=== PATIENT | female | born 2000 | race Caucasian/White ===

== ENCOUNTER 2022-06-17 11:48 | Outpatient (REF) | payer BC, SELFPAY ==
[2022-06-17 14:29] LABS: Glucose Fasting 85 mg/dL (60-99)
== END 2022-06-17 11:49 | disposition home or self-care (01) ==
LOC: HO.HMGCLDS 11:48
PROVIDERS: Visit Provider Pediatrics
DX: R73.09 Other abnormal glucose (principal)
CPT/HCPCS: 36415; 82947

== ENCOUNTER 2023-03-29 09:27 | Outpatient (REF) | payer BC, SELFPAY ==
[2023-03-31 18:48] LABS: TS Negative Control Passed; TS Panel A 0; TS Panel B 0; TS Positive Control Passed; TSpotTB Negative (Negative)
== END 2023-03-29 09:28 | disposition home or self-care (01) ==
LOC: HO.HMGCLDS 09:27
PROVIDERS: PCP Pediatrics; Visit Provider Pediatrics
DX: Z11.1 Encounter for screening for respiratory tuberculosis (principal)
CPT/HCPCS: 36415; 86481

== ENCOUNTER 2023-11-29 08:34 | Outpatient (REF) | payer BC, SELFPAY ==
[2023-11-29 10:03] LABS: MANUAL DIFF FLAG NO
[2023-11-29 10:17] LABS: Basophils Percent Auto 0.5 % (0-2); Eosinophils Absolute Auto 0.1 X10*3/uL (0.0-0.4); Hematocrit 42.3 % (37.0-47.0); Hemoglobin 13.5 g/dl (12.0-16.0); Imm Gran Abs Auto 0.02 X10*3/uL (0.00-0.03); Imm Gran Pct Auto 0.3 % (0.0-0.4); Mean Corpuscular HGB Conc 31.9 g/dl (31.0-35.0); Mean Corpuscular Hemoglobin 28.4 pg (27.0-33.0); Mean Corpuscular Volume 89.1 fL (80.0-98.0); Mean Platelet Volume 9.4 fL (9.4-12.3); Monocytes Absolute Auto 0.5 X10*3/uL (0.1-1.2); Monocytes Percent Auto 8.9 % (2-11); Neutrophils Absolute Auto 3.4 x10*3/uL (2.0-8.3); Neutrophils Percent Auto 55.3 % (45-73); Platelet Count 389 X10*3/uL (160-400); Red Blood Count 4.75 X10*6/uL (4.20-5.50); Red Cell Distribution Width 13.2 % (11.0-16.0); White Blood Count 6.1 X10*3/uL (4.8-10.8)
[2023-11-29 10:47] LABS: Alanine Aminotransferase 18 U/L (0-31); Albumin Level 4.3 g/dL (3.5-5.0); Alkaline Phosphatase 64 U/L (39-117); Anion Gap 9 (12-20); Aspartate Amino Transferase 17 U/L (5-31); Bilirubin Total 0.7 mg/dL (0.0-1.0); Blood Urea Nitrogen 16 mg/dL (9-16); Calcium 9.5 mg/dL (8.4-10.2); Carbon Dioxide 24 mmol/L (22-29); Chloride 110 mmol/L (96-108); Cholesterol 171 mg/dL (<200); Estimated Glomerular Filt Rate > 60; Free T4 (Free Thyroxine) 0.79 ng/dL (0.71-1.85); Glucose Fasting 93 mg/dL (60-99); HDL Cholesterol 57 mg/dL (>40); LDL Cholesterol Calculated 104 mg/dL (<100); Potassium 4.3 mmol/L (3.3-5.1); Sodium 139 mmol/L (135-145); Thyroid Stimulating Hormone 3.73 uIU/mL (0.32-4.0); Total Protein 7.1 g/dL (6.5-8.0); Triglycerides 52 mg/dL (<150)
== END 2023-11-29 08:35 | disposition home or self-care (01) ==
LOC: HO.HMGCLDS 08:34
PROVIDERS: PCP Internal Medicine; Visit Provider Internal Medicine
DX: E01.0 Iodine-deficiency related diffuse (endemic) goiter (principal); G90.A Postural orthostatic tachycardia syndrome [POTS]
CPT/HCPCS: 36415; 80053; 80061; 84439; 84443; 85025

== ENCOUNTER 2023-12-21 07:03 | Outpatient (REF) | payer BC, SELFPAY ==
[2023-12-21 10:56] LABS: HBS Num1 0.76 mIU/mL (0-7.99); HBsAGNum1 0.28 S/CO (0.00-0.99); Hepatitis A Antibody IgM 0.26 Index (0-0.79); Hepatitis B Core Antibody Nonreactive (Nonreactive); Hepatitis B Surface Antigen Negative (Negative); ~HepC Num1 0.13 S/CO (0.00-0.79); ~Hepatitis A Antibody IgM Nonreactive (Nonreactive); ~Hepatitis B Surface Antibody NONREACTIVE (Nonreactive); ~Hepatitis C Antibody Nonreactive (Nonreactive)
== END 2023-12-21 07:04 | disposition home or self-care (01) ==
LOC: HO.HMGCLDS 07:03
PROVIDERS: PCP Internal Medicine; Visit Provider Internal Medicine
DX: Z01.84 Encounter for antibody response examination (principal); Z28.39 Other underimmunization status
CPT/HCPCS: 36415; 86704; 86706; 86709; 86803; 87340

== ENCOUNTER 2024-01-09 14:08 | Outpatient (REF) | payer BC, SELFPAY ==
--- NOTE | ~2024-01-09 | US_ITS ---
EXAMINATION: US THYROID CLINICAL INFORMATION: Goiter. COMPARISON: None available. TECHNIQUE: Linear transducer grayscale and color Doppler examination with attention to the region of the thyroid. FINDINGS: SIZE: Measurements of the thyroid lobes and nodules are given in sagittal, anteroposterior and transverse dimensions respectively. Right Thyroid Lobe: 5.7 x 1.8 x 1.6 cm, volume 8.5 mL. Parenchyma: The gland echotexture is heterogeneous. Thyroid vascularity is hypervascular. Left Thyroid Lobe: 5.6 x 2.7 x 2.3 cm, volume 18.7 mL. Parenchyma: The gland echotexture is heterogeneous. Thyroid vascularity is hypervascular. Isthmus: 0.7 cm in maximum AP dimension. Estimated total number of nodules greater than or equal to 1 cm: 0. [employer] nodules are described as follows: NODES: No lymphadenopathy is seen in the tissue surrounding the thyroid gland. US/US thyroid IMPRESSION: Diffusely heterogeneous, hypervascular thyroid gland. Enlarged thyroid gland, left lobe greater than right. No suspicious thyroid nodules identified. ACR TI-RADS RECOMMENDATION REFERENCE: Ultrasound-guided fine-needle aspiration, followup ultrasound, no further follow up. * TR1 (0 point) and TR2 (2 points): No FNA or follow up. * TR3 (3 points): FNA if more than or equal to 2.5 cm in maximum dimension, followup ultrasound in 1, 3 and 5 years if 1.5 to 2.4 cm in maximum dimension. * TR4 (4-6 points): FNA if more than or equal to 1.5 cm in maximum dimension, followup ultrasound in 1, 2, 3 and 5 years if 1 to 1.4 cm in maximum dimension. * TR5 (more than or equal to 7 points): FNA if more than or equal to 1 cm in maximum dimension, followup ultrasound every year for 5 years if 0.5 to 0.9 cm in maximum dimension. * TR3, TR4 or TR5 nodules that are below the size threshold for followup receive no follow up. Electronically signed by: Layla Velasquez MD 01/24/2024 10:21 AM EDT
== END 2024-01-09 14:09 | disposition home or self-care (01) ==
LOC: HO.HMGCX 14:08
PROVIDERS: PCP Internal Medicine; Visit Provider Internal Medicine
DX: E01.0 Iodine-deficiency related diffuse (endemic) goiter (principal)
CPT/HCPCS: 76536

== ENCOUNTER 2024-01-12 15:44 | Emergency (ER) | payer BC, SELFPAY ==
[2024-01-12 15:58] VITALS: PULSE 130; RESP 20; TEMP 37.2; O2SAT 97; BMI 24.2
--- NOTE | 2024-01-12 16:01 | ED.GENADULT ---
HPI - General Adult General Chief complaint: General Medical Stated complaint: hx POTS, full body tremor + high HR s/p syncope Time Seen by Provider: 01/12/24 16:20 Source: patient and family Mode of arrival: wheelchair Limitations: no limitations History of Present Illness HPI narrative: Patient is a 23-year-old female who presents emergency department with mother for evaluation. She reports that she has been experiencing tachycardia and full body shaking, as well as occasional nausea. Reports that onset of symptoms was 5 days ago without any precipitating illness. She reports 5 days ago she had an episode where she felt as though she was going to pass out when walking to her car, otherwise denies associated dizziness, lightheadedness, fevers, shortness of breath, difficulty breathing, numbness or tingling, chest pain, vomiting, abdominal pain, possibility of . She reports that she was evaluated at [facility] Emergency Department 2 days ago as well, her symptoms were ultimately improved after receiving 3 doses of lorazepam IV. She reports taking lorazepam 1 mg by mouth at 05:00 this morning without any improvement. She contacted her primary care doctor's office and was advised to come to the emergency department as she had been experiencing tachycardia with rate up to 160. She reports an episode that occurred similar to this in June lasting 2 weeks that was constant in nature at that time as well, but has been symptom-free up until 5 days ago. the only thing that somewhat alleviated the shaking was use of Ativan 1 mg daily orally. She has been evaluated at [facility] in the emergency department as well as with Cardiology Dr. Klein but is unable to have a follow-up appointment with them until February of 2024. as well as [facility] in [place], where she was evaluated by Neurology during hospital stay but had no subsequent outpatient follow-up for imaging, denies ever having had an EEG. Reports that she had a normal CT of the head. States that there has been mention of functional neurologic disorder but no definitive diagnosis. Aside from lorazepam, she had trialed beta-blockers but developed constant nausea and a a general unwell feeling on them, trialed propranolol twice and metoprolol once. Her primary care doctor is Dr. Dahl through [facility], who is attempting to arrange referral to Cardiology at [place], and awaiting referral for Neurology. Related Data Previous Rx's ?Medication ?Instructions ?Recorded azithromycin 250 mg tablet See Rx Instructions PO .COMPLEX #6 08/31/21 tabs Allergies Allergy/AdvReac Type Severity Reaction Status Date / Time amoxicillin Allergy Mild Hives Verified 01/12/24 16:08 Review of Systems Review of Systems: Yes all other systems are reviewed and are negative [facility] Past Medical History Attestation statement: The following information was validated with the patient. Source: old records reviewed Medical History (Updated 01/12/24 @ 20:06 by Shirley Berman CNP) Tremor POTS (postural orthostatic tachycardia syndrome) Social History Social History Patient Tobacco Use Status: Never used Tobacco Smoked in Last 30 Days: No Use of substances other than those prescribed or required for medical reasons: No Advance Directives: No Advance Directives Information Provided: No Do you have a plan to hurt others: No Plan Physical Exam ED Vital Signs: Vital Signs - 24 hr 01/12/24 15:58 01/12/24 16:57 01/12/24 18:00 Temperature 98.9 F 98.3 F 98.5 F Pulse Rate 130 H 139 H 80 Respiratory Rate 20 22 H 18 Blood Pressure 106/71 124/82 Pulse Oximetry 97 96 99 Oxygen Delivery Method Room Air Room Air Room Air 01/12/24 19:35 01/12/24 20:47 Temperature 98.7 F 98.7 F Pulse Rate 78 78 Respiratory Rate 20 20 Blood Pressure 136/92 H 136/92 H Pulse Oximetry 98 98 Oxygen Delivery Method Room Air BMI result Body Mass Index 24.2 Appearance: Alert.?Oriented to person, place and time. No acute distress.?Normal affect. Eyes: Pupils equal, round and reactive to light.? ENT: Pharynx normal.?? Neck: Normal inspection.? Neck supple.?? CVS: Heart sounds normal. Sinus tachycardia.? Pulses normal.?? Respiratory: No respiratory distress.? Lung sounds clear to auscultation bilaterally?? Abdomen: Soft and non-tender. Normoactive bowel sounds. ? Skin: Skin warm and dry.? Normal skin color.? Extremities: No lower extremity edema.? No calf ttp? Neuro: Noted to have rhythmic convulsions involving or so and bilateral upper and lower extremities of varying location, overall constant during the time of my evaluation. Moves all extremities spontaneously. Sensation intact bilaterally. CN II-XII intact. No focal neuro deficits. Course Course Course Narrative: This is a Rapid Medical Examination (RME) performed by Jozef Moreau PA-C in triage. Full HPI, ROS, assessment and treatment plan per primary provider in the Main ED. 23 yo female hx of POTS here w/ mom for eval of full body tremors and elevated heart rate x 2 weeks. reports HR ranges from 90-115bpm and then the tremors will start. hr earlier today was 160. called PCP who told her to come to the ED. reports taking ativan at 5am today. seen at [facility] on Monday and was discharged home. states that this has happened earlier this year and was evaluated at both [facility] and [facility]. tremors were treated with ativan and eventually resolved. presents in wheel chair. patient AOX3. noted upper body tremor. no tremor noted to lower extremities. speaking in complete sentences. Plan: labs, ekg Reevaluation(s) Reevaluation #1: Records were reviewed from [facility] 01/10/2024; emergency department visit, her serum labs were found to have a slightly elevated TSH but normal free T4, NSR on EKG, affirmed she did not fact receive 3 doses of lorazepam 1 mg IV before ultimate cessation of her symptoms, was advised to have outpatient follow-up with Cardiology for tachycardia/pots and follow-up with PT/OT, and psychotherapist for CBT for FND Time: 17:26 Reevaluation #2: CBC is without evidence of leukocytosis or left shift, no anemia, no thrombocytopenia. No significant electrolyte derangement. No CHERI. Magnesium within normal range. LFTs within normal range. CK within normal range. Urinalysis without evidence of infection or microscopic hematuria. testing negative. Viral panel negative. Patient noted to have cessation of tremors, tachycardia has improved with rate in the 60s, normal sinus rhythm on telemetry over the past. Upon speaking with patient and discussing her results at bedside, she does state that she feels more relaxed and tired at this time, unfortunately she did begin to have again arrhythmic like convulsion to her chest and slightly to the bilateral upper extremities. Time: 18:18 Reevaluation #3: Patient received a 2nd dose of lorazepam 1 mg IV, movement convulsions have notably decreased in frequency and depth into the chest and bilateral upper extremities. Discussed plan of care with patient and mother for close outpatient follow-up with primary care provider in addition to cardiology/neurology. Advised strict return precautions. Stable for discharge home. Time: 20:06 Medications Administered Discontinued Medications Generic Name Dose Route Start Last Admin Trade Name Nhi PRN Reason Stop Dose Admin Sodium Chloride 1,000 mls @ 999 mls/hr 01/12/24 17:00 01/12/24 19:43 Ns IV 01/12/24 18:00 Infused .Q1H1M JERMAINE Infusion Lorazepam 1 mg 01/12/24 16:53 01/12/24 17:36 Lorazepam 2 Mg/Ml Vial IVPUSH 01/12/24 16:54 1 mg ONCE ONE Administration Lorazepam 1 mg 01/12/24 18:58 01/12/24 19:25 Lorazepam 2 Mg/Ml Vial IVPUSH 01/12/24 18:59 1 mg ONCE ONE Administration Ondansetron HCl 4 mg 01/12/24 16:59 01/12/24 17:37 Ondansetron Hcl 4 Mg/2 Ml Vial IVPUSH 01/12/24 17:00 4 mg ONCE ONE Administration Medical Decision Making Medical Decision Making [facility] Narrative: Patient is a 23-year-old female with reported past medical history of POTS, tremor who presents emergency department for evaluation of tachycardia and constant body shaking over the past 5 days without identifiable precipitating cause. As per HPI has had a similar occurrence in June that lasted 2 weeks. Has reportedly failed outpatient management with beta-blockers due to adverse effects. Has had some minimal improvement in the past with lorazepam orally by her account. No recent follow-up with cardiology or Neurology. Clinically have lower suspicion for intracranial mass, given recent normal head CT, suspect less likely to be seizures due to duration but would likely benefit from EEG. During my evaluation she is noted to have rhythmic convulsions involving the torso, bilateral upper and lower extremities of varying location that is overall constant during the time of evaluation, she is speaking clear full sentences, does not noted to have a tremulous voice, is mildly tachycardic at 110. Will obtain CBC to evaluate for leukocytosis/ anemia, CMP and lipase to evaluate for abnormal electrolytes /abnormal renal function/ abnormal hepatic/biliary function, EKG to evaluate for arrhythmia, and urinalysis Differential Diagnosis Differential Diagnoses: The differential diagnosis associated with the presentation includes (POTS, FND, tachyarrhythmia, SVT, seizure, functional tremor) Admission/Observation Consideration of admission/observation: Escalation of care including admission/observation considered Lab Data 01/12/24 17:31 01/12/24 17:31 Labs: Lab Results 01/12/24 01/12/24 01/12/24 Range/Units 17:31 17:31 17:32 WBC 6.8 (4.8-10.8) X10*3/uL RBC 4.68 (4.20-5.50) X10*6/uL Hgb 13.6 (12.0-16.0) g/dl Hct 41.2 (37.0-47.0) % MCV 88.0 (80.0-98.0) fL MCH 29.1 (27.0-33.0) pg MCHC 33.0 (31.0-35.0) g/dl RDW 12.9 (11.0-16.0) % Plt Count 370 (160-400) X10*3/uL MPV 9.4 (9.4-12.3) fL Immature Gran % (Auto) 0.1 (0.0-0.4) % Neut % (Auto) 51.5 (45-73) % Lymph % (Auto) 32.9 (20-40) % Lanier % (Auto) 13.1 H (2-11) % Eos % (Auto) 1.8 (0-4) % Baso % (Auto) 0.6 (0-2) % Lymph # (Auto) 2.2 (1.2-4.9) X10*3/uL Lanier # (Auto) 0.9 (0.1-1.2) X10*3/uL Eos # (Auto) 0.1 (0.0-0.4) X10*3/uL Baso # (Auto) 0.0 (0.0-0.2) X10*3/uL Abs Immat Gran (auto) 0.01 (0.00-0.03) X10*3/uL Absolute Neuts (auto) 3.5 (2.0-8.3) x10*3/uL Absolute Nucleated RBC 0.000 (0.0-0.012) X10*3/uL Nucleated RBC % (auto) 0.0 (0.0-0.2) /100WBC Sodium 144 (135-145) mmol/L Potassium 4.2 (3.3-5.1) mmol/L Chloride 111 H (96-108) mmol/L Carbon Dioxide 25 (22-29) mmol/L Anion Gap 12 (12-20) BUN 14 (9-16) mg/dL Creatinine 0.79 (0.5-1.4) mg/dL Estim Creat Clear Calc 105.4 Estimated GFR > 60 Random Glucose 84 (60-115) mg/dL Calcium 9.9 (8.4-10.2) mg/dL Magnesium 2.1 (1.6-2.6) mg/dL Total Bilirubin 0.5 (0.0-1.0) mg/dL AST 18 (5-31) U/L ALT 18 (0-31) U/L Alkaline Phosphatase 72 (39-117) U/L Total Creatine Kinase 71 Cancelled (26-140) U/L Total Protein 7.6 (6.5-8.0) g/dL Albumin 4.5 (3.5-5.0) g/dL TSH 3.35 (0.32-4.0) uIU/mL Urine Color Yellow Urine Appearance Clear Urine pH 6.0 (5.0-9.0) Ur Specific [place] 1.015 (1.005-1.025) Urine Protein Negative (Neg-Trace) mg/dL Urine Glucose (UA) Negative (Negative) mg/dL Urine Ketones Negative (Negative) mg/dL Urine Blood Negative (Negative) Urine Nitrite Negative (Negative) Ur Leukocyte Esterase Negative (Negative) Urine Test NEGATIVE (NEGATIVE) Influenza Type A (PCR) NEGATIVE (Negative) Influenza Type B (PCR) NEGATIVE (Negative) RSV RNA Qual (PCR) NEGATIVE (Negative) SARS-CoV-2 RNA (RT-PCR) NEGATIVE (Negative) Independent Interpretation I performed an independent interpretation of an: EKG Interpretation: Rate: 102 Rhythm:? Sinus tachycardia Normal P waves.? Normal MICHEL.?? Normal QRS complex.?? ST T wave :??No ST elevation, no ST depression qTC:435 prior studies:? None prior available for review The study has been interpreted contemporaneously by me. External Record Review External record reviewed: Outpatient record (See course narrative) Critical Care Time Critical Care Time Critical Care Time: Yes Total Critical Care Time: 35 Attestation: I personally attest to this critical care time spent taking care of the patient exclusive of all other billable procedures was approximately 35 minutes including initial evaluation of patient, ordering tests, IV lorazepam and re-evaluation, EKG interpretation, medical consultation, documentation, re-evaluation. Discharge Plan Discharge Clinical Impression: POTS (postural orthostatic tachycardia syndrome), Tremor Patient Disposition: Home, Self-Care Instructions: Tremors (ED), Tachycardia (ED) Additional Instructions: As discussed, it is very important that you follow-up with Cardiology and Neurology. I have provided contact information for both the Cardiology and Neurology office associated with [facility]. Please follow-up with your primary care doctor closely. Continue use of your Ativan as needed as prescribed. Return to emergency department any new or worsening symptoms or concerns. Prescriptions: No Action azithromycin 250 mg tablet See Rx Instructions PO .COMPLEX Qty: 6 0RF Rx Instructions: take 500 mg today (day 1), then 250 mg for 4 days (days 2-5) PO Referrals: [facility] Cardiovascular Specialists [Provider Group] [facility] Neuro/Sleep [Provider Group] Ant Dahl DO [Primary Care Provider] - Interventions: ED Discharge Assessment Last Done: 01/12/24 20:47 Discharge Date/Time: 01/12/24 20:47 Print Language: Guyanese
--- NOTE | 2024-01-12 16:09 | ECG_ITS ---
Test Reason : TACHYCARDIA Blood Pressure : / mmHG Vent. Rate : 102 BPM Atrial Rate : 102 BPM P-R Int : 192 ms QRS Dur : 084 ms QT Int : 334 ms P-R-T Axes : 047 020 037 degrees QTc Int : 435 ms Poor data quality, interpretation may be adversely affected Sinus tachycardia Otherwise normal ECG No previous ECGs available Referred By: Sienna Moreau Electronically Signed By:THOMAS IRWIN
[2024-01-12 16:57] VITALS: BP 106/71; PULSE 139; RESP 22; TEMP 36.8; O2SAT 96
[2024-01-12] MEDS: LORazepam 2 MG/ML VIAL 1 MG IVPUSH ×2 (17:36→19:25)
[2024-01-12] MEDS: 0.9 % Sodium Chloride 1,000 ML 999 ML IV (17:37)
[2024-01-12] MEDS: ondansetron HCL 4 MG/2 ML VIAL IVPUSH (17:37)
[2024-01-12 17:40] LABS: MANUAL DIFF FLAG NO
[2024-01-12 17:44] LABS: Appearance Urine Clear; Color Urine Yellow; Glucose Urine UA Negative (Negative); Leukocyte Esterase Urine Negative (Negative); Nitrite Urine Negative (Negative); Specific Gravity - Urine 1.015 (1.005-1.025); Urine Blood Negative (Negative); Urine Ketones Negative (Negative); Urine Protein Negative (Neg-Trace)
[2024-01-12 17:46] LABS: UPreg QC Valid YES; Urine Pregnancy NEGATIVE (NEGATIVE)
[2024-01-12 17:50] LABS: Basophils Percent Auto 0.6 % (0-2); Eosinophils Absolute Auto 0.1 X10*3/uL (0.0-0.4); Eosinophils Percent Auto 1.8 % (0-4); Hematocrit 41.2 % (37.0-47.0); Hemoglobin 13.6 g/dl (12.0-16.0); Imm Gran Abs Auto 0.01 X10*3/uL (0.00-0.03); Imm Gran Pct Auto 0.1 % (0.0-0.4); Lymphocytes Absolute Auto 2.2 X10*3/uL (1.2-4.9); Lymphocytes Percent Auto 32.9 % (20-40); Mean Corpuscular Hemoglobin 29.1 pg (27.0-33.0); Mean Platelet Volume 9.4 fL (9.4-12.3); Monocytes Absolute Auto 0.9 X10*3/uL (0.1-1.2); Monocytes Percent Auto 13.1 % (2-11); Neutrophils Absolute Auto 3.5 x10*3/uL (2.0-8.3); Neutrophils Percent Auto 51.5 % (45-73); Platelet Count 370 X10*3/uL (160-400); Red Blood Count 4.68 X10*6/uL (4.20-5.50); Red Cell Distribution Width 12.9 % (11.0-16.0); White Blood Count 6.8 X10*3/uL (4.8-10.8)
[2024-01-12 18:00] VITALS: BP 124/82; PULSE 80; RESP 18; TEMP 36.9; O2SAT 99
[2024-01-12 18:02] LABS: Alanine Aminotransferase 18 U/L (0-31); Albumin Level 4.5 g/dL (3.5-5.0); Alkaline Phosphatase 72 U/L (39-117); Anion Gap 12 (12-20); Aspartate Amino Transferase 18 U/L (5-31); Bilirubin Total 0.5 mg/dL (0.0-1.0); Blood Urea Nitrogen 14 mg/dL (9-16); Calcium 9.9 mg/dL (8.4-10.2); Carbon Dioxide 25 mmol/L (22-29); Chloride 111 mmol/L (96-108); Creatinine Clr Calc Pharmacy 105.4; Estimated Glomerular Filt Rate > 60; Glucose Random 84 mg/dL (60-115); Magnesium 2.1 mg/dL (1.6-2.6); Potassium 4.2 mmol/L (3.3-5.1); Sodium 144 mmol/L (135-145); Total Protein 7.6 g/dL (6.5-8.0)
[2024-01-12 18:20] LABS: Influenza A PCR NEGATIVE (Negative); Influenza B PCR NEGATIVE (Negative); Resp Syncy Virus RNA Qual PCR NEGATIVE (Negative); SARS COV2 PCR INHOUSE NEGATIVE (Negative)
[2024-01-12 18:24] LABS: TSH reflex Free T4 3.35 uIU/mL (0.32-4.0)
[2024-01-12 19:35] VITALS: BP 136/92; PULSE 78; RESP 20; TEMP 37.1; O2SAT 98
--- NOTE | 2024-01-12 19:36 | MHC.EDTECH ---
This tech took over care of patient at 1900,hourly rounds and vitals completed,mom at bedside,call rhoades in reach
[2024-01-12 20:47] VITALS: BP 136/92; PULSE 78; RESP 20; TEMP 37.1; O2SAT 98
--- OUTSIDE RECORDS SUMMARY | 2024-01-14 00:27 | XMS_ITS | Continuity of Care Document ---
Author Organization [facility] Address [address] [address]- Care Team Providers Care Certified Technician Name Role Phone Maximiliano Wheatley MD Primary Care Physician [phone] Encounter [facility] Date(s): 09/02/22 - 10/02/22 [facility] [address] [address]- Attending Physician: Admtr, Ar8 Admitting Physician: Admtr, Ar8 Referring Physician: Admtr, Ar8 Allergies, Adverse Reactions, Alerts Substance Reaction Severity Status amoxicillin rash Active Social History Social History Type Response Smoking Status Never (less than 100 in lifetime) entered on: 06/15/22 Sex Patient Care team information Care Team Personnel Name: Maximiliano Wheatley MD Position: S General Pediatrics MD Member Role: PCP Address: Address: [address] [place] [id number]- Care Team Related Persons Name: HOLLY FIELD Address: home [address] [place] [address] Name: SUZY FIELD Address: home [address] [place] [address]
--- OUTSIDE RECORDS SUMMARY | 2024-01-14 00:27 | XMS_ITS | Continuity of Care Document ---
Author Organization [facility] Address [address] [place] [address]- Care Team Providers Care Application Security Developer Name Role Phone Maximiliano Wheatley MD Primary Care Physician Encounter [facility] Date(s): 06/15/22 - 06/15/[address] [address]- Discharge Disposition: A-D/C Home Attending Physician: Ant Herndon MD Admitting Physician: Ant Herndon MD Referring Physician: Not on Staff, Referring MD Allergies, Adverse Reactions, Alerts Substance Reaction Severity Status amoxicillin rash Active Vital Signs Most recent to oldest [Reference Range]: 1 2 3 Height 168 cm (06/15/22 9:34 PM) 168 cm (06/15/22 8:56 PM) 168 cm (06/15/22 8:55 PM) Weight 60.6 kg (06/15/22 9:34 PM) 60.6 kg (06/15/22 8:56 PM) 60.6 kg (06/15/22 8:55 PM) Oxygen Saturation [94-100 %] 100 % (06/15/22 10:00 PM) 100 % (06/15/22 8:55 PM) Pulse Rate [55-90 bpm] 71 bpm (06/15/22 10:00 PM) 72 bpm (06/15/22 8:55 PM) Body Mass Index [18.5-24.99 kg/m2] 21.47 kg/m2 (06/15/22 9:34 PM) 21.47 kg/m2 (06/15/22 8:55 PM) Blood Pressure [90-138/55-84 mm Hg] 129/78mm Hg (06/15/22 8:55 PM) Respiratory Rate [16-30 br/min] 18 br/min (06/15/22 10:00 PM) 18 br/min (06/15/22 8:55 PM) Temperature [96.8-100.4 DegF] 97.3 DegF (06/15/22 8:55 PM) Mode of Delivery (Oxygen) Room air (06/15/22 10:00 PM) Room air (06/15/22 8:55 PM) Blood pressure sites Arm, right (06/15/22 8:55 PM) Temperature Route Temporal (06/15/22 8:55 PM) Dry Weight 60.6 kg (06/15/22 9:34 PM) 60.6 kg (06/15/22 8:56 PM) 60.6 kg (06/15/22 8:55 PM) Height Percentile 76.47 % 1 (06/15/22 9:34 PM) 76.47 % 2 (06/15/22 8:56 PM) 76.47 % 3 (06/15/22 8:55 PM) Height ZScore 0.72 4 (06/15/22 9:34 PM) 0.72 5 (06/15/22 8:56 PM) 0.72 6 (06/15/22 8:55 PM) Weight Percentile Per Age 59.31 % 7 (06/15/22 9:34 PM) 59.31 % 8 (06/15/22 8:56 PM) 59.31 % 9 (06/15/22 8:55 PM) BMI Percentile 47.04 10 (06/15/22 9:34 PM) 47.04 11 (06/15/22 8:55 PM) BMI ZScore -0.07 12 (06/15/22 9:34 PM) -0.07 13 (06/15/22 8:55 PM) Weight ZScore 0.24 14 (06/15/22 9:34 PM) 0.24 15 (06/15/22 8:56 PM) 0.24 16 (06/15/22 8:55 PM) 1Result Comment: ^~:!Percentile Source -CDC/WHO 2Result Comment: ^~:!Percentile Source -CDC/WHO 3Result Comment: ^~:!Percentile Source -CDC/WHO 4Result Comment: ^~:!ZScore Source -CDC/WHO 5Result Comment: ^~:!ZScore Source [facility]/WHO 6Result Comment: ^~:!ZScore Source [facility]/WHO 7Result Comment: ^~:!Percentile Source [facility]/WHO 8Result Comment: ^~:!Percentile Source CDC/WHO 9Result Comment: ^~:!Percentile Source [facility]/WHO 10Result Comment: ^~:!Percentile Source [facility]/WHO 11Result Comment: ^~:!Percentile Source [facility]/WHO 12Result Comment: ^~:!ZScore Source [facility]/WHO 13Result Comment: ^~:!ZScore Source CDC/WHO 14Result Comment: ^~:!ZScore Source [facility]/WHO 15Result Comment: ^~:!ZScore Source [facility]/WHO 16Result Comment: ^~:[facility]/WHO Social History Social History Type Response Smoking Status Never (less than 100 in lifetime) entered on: 06/15/22 Sex Note * eKturah Anderson: SIGN, PERFORM, SIGN, VERIFY Event Display: Patient Education Handout Authored Date: [id number] * Keturah Anderson: PERFORM Event Display: Patient Education Leaflets Authored Date: [id number] Heart Palpitations ?? [id number] Heart Palpitations Palpitations are the feeling that your heart is beating hard, fast, or irregular. Some describe it as pounding, flip-flopping in the chest, or skipped beats. Palpitations may occur in someone with heart disease. But they can also occur in a healthy person. Heart-related causes: ??? Heart rhythm problem (arrhythmia) ??? Heart valve disease ??? Disease of the heart muscle (cardiomyopathy) ??? Coronary artery disease ??? High blood pressure Omh-ceixh-ycqgqbt causes: ??? Certain medicines such as asthma inhalers and decongestants ??? Some herbal supplements, energydrinks and pills, and weight loss pills ??? Illegal stimulant drugs such as cocaine, crank, methamphetamine, PCP, and ecstasy ??? Caffeine, alcohol, and tobacco ??? Health conditions such as thyroid disease, anemia, anxiety, and panic disorder Sometimes the cause can't be found. Home care Follow these home care tips: ??? Don't use too much caffeine, alcohol, or tobacco, or any stimulantdrugs. ??? Tell your doctor about any prescription or vido-dcu-ymzqgeg or herbal medicines you take. ?? Follow-up care ??? Follow up with your doctor, or as advised. ?? Call 911 This is the fastest and safest way to get to the emergency department. The paramedics can also start treatment on the way to the hospital, if needed. Don't wait until your symptoms are severe to call 911. These are reasons to call 911: ??? Chest pain ??? Shortness of breath ??? Feeling lightheaded, faint, or dizzy, or losing consciousness ??? Veryirregular heartbeat ??? Rapid heartbeat that makes you uncomfortable ??? Slower than usual heart rate along with symptoms ??? Chest pain with weakness, dizziness,??heavy sweating, nausea, or vomiting??? Extreme drowsiness, confusion, or weakness ??? Weakness of an arm or leg, or on one side of theface ??? Trouble with speech or vision ?? When to seek medical advice Call your healthcare provider right away if you have palpitations that last longer than normal, or are different from your past palpitations. ?? Last Reviewed Date: 2021 ?? [id number] [employer] All rights reserved. This information is not intended as a substitute for professional medical care. Always follow your healthcare professional's instructions. ?? Patient Care team information Care Team Personnel Name: Maximiliano Wheatley MD Position: [facility] General Pediatrics MD Member Role: PCP Address: Address: [address] [place] [address]- Name: Keturah Anderson Position: [facility] Associate Professional Member Role: Physician Food And Nutrition Professor Address: Address: [address] [facility] [place] [address]- [place] Name: Ant Herndon MD Position: [facility] ED Medicine MD Member Role: Admitting Physician Address: Address: [address] [place] [address]- Name: Pilar Montiel RN Position: [facility] ED RN W/OE and Tasks Member Role: Patient Care Provider
--- OUTSIDE RECORDS SUMMARY | 2024-01-14 00:27 | XMS_ITS | Continuity of Care Document ---
Author Organization [facility] Address [address] [address]- Care Team Providers Care Army Senior Officer Name Role Phone Maximiliano Wheatley MD Primary Care Physician [phone] [place] [facility] [place] Date(s): 10/24/22 - 11/23/22 [facility] [address] [address]- Attending Physician: Admtr, [id number] Admitting Physician: Admtr, Ar8 Referring Physician: Admtr, Ar8 Allergies, Adverse Reactions, Alerts Substance Reaction Severity Status amoxicillin rash Active Medications metoprolol 25 mg oral tablet 12.5 mg, 0.5, tablet, By Mouth, 2 times a day, # 180 tablet, Refills 0, Tot. Refills 0, Maintenance, 11/15/22 15:21:00 EDT, Route to Pharmacy Electronically, [id number], Partial fillupon patient request if the prescription is for a s... Start Date: 11/15/22 Status: Ordered Social History Social History Type Response Smoking Status Never (less than 100 in lifetime) entered on: 06/15/22 Sex Patient Care team information Care Team Personnel Name: Maximiliano Wheatley MD Position: [facility] Pediatrics MD Member Role: PCP Address: Address: [address] [place] [address]- Care Team Related Persons Name: HOLLY FIELD Address: [address] [place] [address] Name: SUZY FIELD Address: [address] [place] [address]
--- OUTSIDE RECORDS SUMMARY | 2024-01-14 00:27 | XMS_ITS | Continuity of Care Document ---
Author Organization [facility] Address [address] [place] [address]- Care Team Providers Care Heavy Cleaner Name Role Phone Maximiliano Wheatley MD Primary Care Physician Encounter [facility] Date(s): 11/08/22 - 11/08/[address] [address]- Discharge Disposition: A-D/C Home Attending Physician: Lucas Campbell MD Admitting Physician: Lucas Campbell MD Referring Physician: Not on Staff, Referring MD Allergies, Adverse Reactions, Alerts Substance Reaction Severity Status amoxicillin rash Active Medications propranolol 20 mg oral tablet 20 mg, 1, tablet, By Mouth, 2 times a day, # 20 tablet, Refills 0, Tot. Refills 0, Maintenance, 11/08/22 22:16:00 EDT, Route to Pharmacy Electronically, [facility] #[id number], Partial fill uponpatient request if the prescription is for a schedu... Start Date: 11/08/22 Status: Ordered Results Radiology Reports * Exam Date Time Procedure Performing Provider Status 11/08/22 9:10 PM Chest 2 Views Frontal and Lat Nilda Dixon; Ara (Verified) Notes: (Chest 2 Views Frontal and Lat) Reason For Exam: Chest Pain;Other: RESULT: Chest 2 Views Frontal and Lat Chest 2 Views Frontal and Lat Hx of Present Illness: Pt experiencing palpitations and lightheaded. Pt has HX tachycardia, in the pat halter and Zio monitor.; Reason: Other:; Chest Pain; Clinical Question(s): Other: COMPARISON: 09/01/2022 FINDINGS: LINES AND TUBES: None. LUNGS AND PLEURA: Clear lungs. Normal pulmonary vascularity. No pleural effusion. No pneumothorax. HEART, MEDIASTINUM AND RHONDA: Heart is normal in size. Normal mediastinal and hilar contour. BONES AND SOFT TISSUES: No acute abnormality. IMPRESSION: No acute abnormality. WSN: [id number] Ordering Physician: Claudio Lara Dictated By: Manan Aguilera MD Dictated Date/Time: 11/08/22 9:12 pm Reviewed By: Manan Aguilera MD Signed By: Manan Aguilera MD Signed Date/Time: 11/08/22 9:12 pm Transcribed By: CARO Transcribed Date/Time: 11/08/22 9:12 pm Vital Signs Most recent to oldest [Reference Range]: 1 2 3 Height 168 cm (11/08/22 10:26 PM) 168 cm (11/08/22 8:37 PM) Weight 61.3 kg (11/08/22 8:37 PM) Oxygen Saturation [94-100 %] 100 % (11/08/22 10:26 PM) 98 % (11/08/22 8:37 PM) 98 % (11/08/22 8:32 PM) Pulse Rate [55-90 bpm] 80 bpm (11/08/22 10:26 PM) 77 bpm (11/08/22 8:37 PM) 122 bpm *H* (11/08/22 8:32 PM) Blood Pressure [90-138/55-84 mm Hg] 125/89mm Hg (11/08/22 10:26 PM) 122/88mm Hg (11/08/22 8:37 PM) Respiratory Rate [16-30 br/min] 18 br/min (11/08/22 10:26 PM) 16 br/min (11/08/22 8:37 PM) 20 br/min (11/08/22 8:32 PM) Temperature [96.8-100.4 DegF] 98.7 DegF (11/08/22 10:26 PM) 98.7 DegF (11/08/22 8:37 PM) Mode of Delivery (Oxygen) Room air (11/08/22 10:26 PM) Room air (11/08/22 8:37 PM) Room air (11/08/22 8:32 PM) Blood pressure sites Arm, left (11/08/22 10:26 PM) Arm, left (11/08/22 8:37 PM) Temperature Route Oral (11/08/22 10:26 PM) Temporal (11/08/22 8:37 PM) Dry Weight 61.3 kg (11/08/22 8:37 PM) Weight Obtained Via Standing scale (11/08/22 8:37 PM) Dry Weight Obtained Via Standing scale (11/08/22 8:37 PM) Social History Social History Type Response Smoking Status Never (less than 100 in lifetime) entered on: 06/15/22 Sex Note * Lucas Campbell MD: PERFORM Event Display: Patient Education Leaflets Authored Date: [id number] Heart Palpitations ?? [id number] Heart Palpitations Palpitations are the feeling that [...] Coronary artery disease ??? High blood pressure Ipn-lnmyl-kromrvg causes: ??? Certain medicines such as asthma [...] Tell your doctor about any prescription or zrxw-aar-rknnack or herbal medicines you take. ?? Follow-up [...] palpitations. ?? Last Reviewed Date: 2021 ?? [id number] The [employer]. All rights reserved. This information is not intended as a substitute for professional medical care. Always follow your healthcare professional's instructions. ?? Patient Care team information Care Team Personnel Name: Corry ALFREDO, Maximiliano Conner Position: [facility] General Pediatrics MD Member Role: PCP Address: Address: [address] [place] [address]- Name: Daja Burnham Position: [facility] ED [facility] Member Role: Patient Care Provider Name: Mariel Kincaid RN Position: [facility] ED RN W/OE and Tasks Member Role: Patient Care Provider Name: Lucas Campbell MD Position: [facility] ED Medicine MD Member Role: Admitting Physician Address: Address: [address] [place] [address] [place] [address]- Care Team Related Persons Name: HOLLY FIELD Address: [address] [place] [address] Name: SUZY FIELD Address: [address] [place] [address]
--- OUTSIDE RECORDS SUMMARY | 2024-01-14 00:28 | XMS_ITS | Continuity of Care Document ---
Author Organization [facility] Address [address] [place] [address]- Care Team Providers Care Call Center Associate Name Role Phone Ant Dahl DO Primary Care Physician [phone] Encounter [facility] Date(s): 08/01/23 - 08/01/[address] [address]- Discharge Disposition: A-D/C Home Attending Physician: Kelvin Campbell MD Admitting Physician: Kelvin Campbell MD Referring Physician: Not on Staff, Referring MD Allergies, Adverse Reactions, Alerts Substance Reaction Severity Status amoxicillin rash Active Medications Ativan 1 mg oral tablet 1 tablet = 1 mg, By Mouth, 2 times a day, PRN as needed for anxiety, 0 Refills, Maintenance, 06/28/23 12:57:00 EST, Tablet, Partial fill upon patient request if the prescription is for a schedule II opioid drug. Start Date: 06/28/23 Status: Ordered naproxen 250 mg oral tablet 250 mg, 1, tablet, By Mouth, 2 times a day, PRN, # 20 tablet, Refills 0, Tot. Refills 0, Acute 08/08/23 12:00:00 EDT, for pain, 08/01/23 12:00:00 EDT, Route to Pharmacy Electronically, [email or web address] #[id number], Partial fill upon patient request if... Start Date: 08/01/23 Stop Date: 08/08/23 Status: Ordered propranolol 10 mg oral tablet 10 mg, 1, tablet, By Mouth, 2 times a day, Refills 0, Maintenance, 08/01/23 9:40:00 EDT, Partial fill upon patient request if the prescription is for a schedule II opioid drug. Start Date: 08/01/23 Status: Ordered Vital Signs Most recent to oldest [Reference Range]: 1 2 Height 168 cm (08/01/23 11:59 AM) 168 cm (08/01/23 9:38 AM) Weight 66.9 kg (08/01/23 11:59 AM) 66.9 kg (08/01/23 9:38 AM) Oxygen Saturation [94-100 %] 97 % (08/01/23 11:59 AM) 98 % (08/01/23 9:38 AM) Pulse Rate [55-90 bpm] 82 bpm (08/01/23 11:59 AM) 88 bpm (08/01/23 9:38 AM) Body Mass Index [18.5-24.99 kg/m2] 23.7 kg/m2 (08/01/23 11:59 AM) Blood Pressure [90-138/55-84 mm Hg] 117/ 75mm Hg (08/01/23 11:59 AM) 154/77mm Hg *H* (08/01/23 9:38 AM) Respiratory Rate [16-30 br/min] 18 br/mi n (08/01/23 11:59 AM) 16 br/min (08/01/23 9:38 AM) Temperature [96.8-100.4 DegF] 97.9 DegF (08/01/23 11:59 AM) 97.8 DegF (08/01/23 9:38 AM) Mode of Delivery (Oxygen) Room air (08/01/23 11:59 AM) Room air (08/01/23 9:38 AM) Blood pressure sites Arm, left (08/01/23 11:59 AM) Temperature Route Oral (08/01/23 11:59 AM) Dry Weight 66.9 kg (08/01/23 11:59 AM) 66.9 kg (08/01/23 9:38 AM) Social History Social History Type Response Smoking Status Never (less than 100 in lifetime) entered on: 06/15/22 Sex Note * Ines Vaughan: PERFORM Event Display: Patient Education Leaflets Authored Date: [id number] Back Pain (Acute or Chronic) ?? [id number] Back Pain (Acute or Chronic) Back pain is one of the most common problems. The good news is that most people feel better in 1 to2 weeks, and most of the rest in 1 to 2 months. Most people can remain active. People who have pain??describe it differently???not??everyone is the same. ??? The pain can be sharp, stabbing, shooting, aching, cramping or burning. ??? Movement, standing,bending, lifting, sitting, or walking may worsen pain. ??? It can be limited to one spot or area, or it can be more generalized. ??? It can spread upwards, to the front, or go down your arms or legs (sciatica). ??? It can cause muscle spasm. Most of the time, mechanical problems with the muscles??or spine cause the pain. Mechanical problems??are usually caused by an injury to the muscles or ligaments. Illness can cause back pain, but it's usually not caused by a serious illness. Mechanical problems include:? Physical activity such as sports, exercise, work, or normal activity ??? Overexertion, lifting,pushing, pulling incorrectly or too aggressively ??? Sudden twisting, bending, or stretching from an accident, or accidental movement ??? Poor posture ??? Stretching or moving wrong, without noticingpain at the time ??? Poor coordination, lack of regular exercise (check with your doctor about this) ??? Spinal disc disease or arthritis ??? Stress Pain can also be related to , or illness such as appendicitis, bladder or kidney infections, kidney stones, and pelvic infections. Acute back pain usually gets better in??1 to 2 weeks. Back pain related to disk disease, arthritis in the spinal joints, or narrowing of the spinal canal (spinal stenosis) can become chronic and lastfor months or years. Unless you had a physical injury such as a car accident or fall, X-rays are usually not needed for the first assessment of back pain. If pain continues and does not respond to medical treatment, you may need X-rays and other tests. Home care Try this home care advice: ??? When in bed, try??to find a position of comfort. A firm mattress is best. Try lying flat on your back with pillows under your knees. You can also try lying on your side with your knees bent up toward your chest and a pillow between your knees. ??? At first, don't try to stretch out the sore spots. If there is a strain, it's not like the good soreness you get after exercising without an injury. In this case, stretching may make it worse. ??? Don't sit for long periods, as in a long car ride or during other??travel. This puts more stress on the lower back than standing or walking. ??? During the first 24 to 72 hours after an acute injury or flare up of chronic back pain, apply an ice pack to the painful area for 20 minutes and then remove it for 20 minutes. Do this over a period of 60 to 90 minutes or several times a day. This will reduce swelling and pain. Wrap the ice pack in a thintowel or plastic to protect your skin. ??? You can start with ice, then switch to heat. Heat (hot shower, hot bath, or heating pad) reduces pain and works well for muscle spasms. Heat can be applied to the painful area for 20 minutes then remove it for 20 minutes. Do this over a period of 60 to 90 minutes or several times a day. Don't sleep on a heating pad. It can lead to skin cooney or tissue damage. ??? You can alternate ice and heat therapy. Talk with your doctor about??the best treatment for your back pain. ??? Therapeutic massage can help relax the back muscles without stretching them. ??? Be aware of safe lifting methods. Don't lift anything without stretching first. Medicines Talk to your doctor before using medicine, especially if you have other medical problems or are taking other medicines. ??? You may use bvnr-svw-ogrgzsb medicine as directed on the bottle to control pain, unless another pain medicine was prescribed. Talk with your healthcare provider before using these medicines if you have chronic conditions such as diabetes, liver or kidney disease, stomach ulcers, or digestive bleeding. Also talk with your provider if you take blood thinners. ??? Be careful if you are given a prescription medicines, narcotics, or medicine for muscle spasms. They can cause drowsiness, affect your coordination, reflexes, and judgment. Don't drive or operate heavy machinery. ?? Follow-up care Follow up with your healthcare provider, or as advised.?? If X-rays were taken, you will be told of any new findings that may affect your care. ?? Call 911 Call 911 if any of the following occur: ??? Trouble breathing ??? Confusion ??? Very drowsy or trouble awakening ??? Fainting or loss of consciousness ??? Rapid or very slow heart rate ??? Loss of bowel or bladder control ?? When to seek medical advice Call your healthcare provider right away if any of these occur:? Pain gets worse or spreads toyour legs ??? Your bowel or bladder control changes ??? Fever ??? Blood in your urine ??? Weakness or numbness in one or both legs ??? Numbness in the groin or genital area ?? Last Reviewed Date: 2021 ?? [id number] [employer]. All rights reserved. This information is not intended as a substitute for professional medical care. Always follow your healthcare professional's instructions. ?? Patient Care team information Care Team Personnel Name: Ant Dahl DO Position: Reference Physician Member Role: PCP Address: Address: [address] [place] [address] [place] [address]- Name: Stephanie Hoover Position: [facility] Outreach Member Role: Lifetime Consulting Physician Care Team Related Persons Name: HOLLY FIELD Address: home [address] [facility] [place] [address] Name: KELVIN FIELD Address: [place] [address] [facility] [place] [address]
--- OUTSIDE RECORDS SUMMARY | 2024-01-14 00:28 | XMS_ITS | Continuity of Care Document ---
Author Organization [facility] Address [address] [place] [address]- Care Team Providers Care Sales And Marketing Administrator Name Role Phone Maximiliano Wheatley MD Primary Care Physician Encounter [facility] Date(s): 09/01/22 - 09/01/[address] [address]- Discharge Disposition: A-D/C Home Attending Physician: Abhishek Baldwin MD Admitting Physician: Abhishek Baldwin MD Referring Physician: Not on Staff, Referring MD Allergies, Adverse Reactions, Alerts Substance Reaction Severity Status amoxicillin rash Active Medications No Known Medications Results Radiology Reports * Exam Date Time Procedure Performing Provider Status 09/01/22 9:08 PM Chest 2 Views Frontal and Lat Sarah Ospina; Auth (Verified) Notes: (Chest 2 Views Frontal and Lat) Reason For Exam: Chest Pain;Other: RESULT: Chest 2 Views Frontal and Lat Chest 2 Views Frontal and Lat Hx of Present Illness: onset 1900- felt like she was going to pass out and felt palpitations - seenby Dr. Limon, has had halter monitor in past -; Reason: Other:; Chest Pain; Clinical Question(s): Other: COMPARISON: 06/14/2022. FINDINGS: LINES AND TUBES: None. LUNGS AND PLEURA: Clear lungs. Normal pulmonary vascularity. No pleural effusion. No pneumothorax. HEART, MEDIASTINUM AND RHONDA: Heart is normal in size. Normal mediastinal and hilar contour. BONES AND SOFT TISSUES: No acute abnormality. IMPRESSION: No acute abnormality. WSN: [id number] Ordering Physician: Ant Herndon Dictated By: Bina Mars MD Dictated Date/Time: 09/01/22 9:11 pm Reviewed By: Bina Mars MD Signed By: Bina Mars MD Signed Date/Time: 09/01/22 9:11 pm Transcribed By: CARO Transcribed Date/Time: 09/01/22 9:11 pm Vital Signs Most recent to oldest [Reference Range]: 1 2 Height 168 cm (09/01/22 8:50 PM) 168 cm (09/01/22 8:46 PM) Weight 59.8 kg (09/01/22 8:50 PM) 59.8 kg (09/01/22 8:46 PM) Oxygen Saturation [94-100 %] 100 % (09/01/22 10:19 PM) Pulse Rate [55-90 bpm] 77 bpm (09/01/22 10:19 PM) Body Mass Index [18.5-24.99 kg/m2] 21.19 kg/m2 (09/01/22 8:50 PM) Blood Pressure [90-138/55-84 mm Hg] 127/ 89mm Hg (09/01/22 10:19 PM) Respiratory Rate [16-30 br/min] 15 br/mi n *L* (09/01/22 10:19 PM) Temperature [96.8-100.4 DegF] 98.4 DegF (09/01/22 10:19 PM) 98.5 DegF (09/01/22 8:50 PM) Mode of Delivery (Oxygen) Room air (09/01/22 10:19 PM) Temperature Route Temporal (09/01/22 10:19 PM) Temporal (09/01/22 8:50 PM) Dry Weight 59.8 kg (09/01/22 8:50 PM) 59.8 kg (09/01/22 8:46 PM) Dry Weight Obtained Via Standing scale (09/01/22 8:46 PM) Social History Social History Type Response Smoking Status Never (less than 100 in lifetime) entered on: 06/15/22 Sex Note * Nicolasa ALFREDO, Abhishek Bose: PERFORM Event Display: Patient Education Leaflets Authored Date: [id number] Heart Palpitations ?? [id number] Heart Palpitations Palpitations are the feeling that [...] Coronary artery disease ??? High blood pressure Pls-jhkvd-amkkebx causes: ??? Certain medicines such as asthma [...] Tell your doctor about any prescription or uhuv-fmj-tmspyma or herbal medicines you take. ?? Follow-up [...] palpitations. ?? Last Reviewed Date: 2021 ?? [id number] [employer] All rights reserved. This information is not intended as a substitute for professional medical care. Always follow your healthcare professional's instructions. ?? * Bossman , CIS S: VIRIDIANA Mars MD, Bina R: VERIFY Event Display: Result: Authored Date: [id number] Chest 2 Views Frontal and Lat Hx of Present Illness: onset 1900- felt like she was going to pass out and felt palpitations - seenby Dr. Limon, has had halter monitor in past -; Reason: Other:; Chest Pain; Clinical Question(s): Other: COMPARISON: 06/14/2022. FINDINGS: LINES AND TUBES: None. LUNGS AND PLEURA: Clear lungs. Normal pulmonary vascularity. No pleural effusion. No pneumothorax. HEART, MEDIASTINUM AND RHONDA: Heart is normal in size. Normal mediastinal and hilar contour. BONES AND SOFT TISSUES: No acute abnormality. IMPRESSION: No acute abnormality. WSN: [id number] Ordering Physician: Ant Herndon Dictated By: Bina Mars MD Dictated Date/Time: 09/01/22 9:11 pm Reviewed By: Bina Mars MD Signed By: Bina Mars MD Signed Date/Time: 09/01/22 9:11 pm Transcribed By: CARO Transcribed Date/Time: 09/01/22 9:11 pm Patient Care team information Care Team Personnel Name: Maximiliano Wheatley MD Position: [facility] General Pediatrics MD Member Role: PCP Address: Address: [address] [place] [address]- Name: Abhishek Baldwin MD Position: [facility] ED Medicine MD Member Role: Admitting Physician Address: Address: [address] [place] [address]- [place] [address]- Name: Yamilka Connell RN Position: [facility] ED RN W/OE and Tasks Member Role: Patient Care Provider Name: Imani Laureano Position: [facility] ED [facility] Member Role: Patient Care Provider Care Team Related Persons Name: HOLLY FIELD Address: [address] [place] [address] Name: DAWSON FIELDHEN Address: [address] [place] [address]
--- OUTSIDE RECORDS SUMMARY | 2024-01-14 00:28 | XMS_ITS | Continuity of Care Document ---
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 Start Date: 06/28/23 Status: Ordered propranolol 10 mg oral tablet 10 mg, 1, tablet, By Mouth, 2 times a day, Refills 0, Maintenance, 08/01/23 9:40:00 EDT, Partial fill upon patient request if the prescription is for a schedule II opioid drug. Start Date: 08/01/23 Status: Ordered Vital Signs Most recent to oldest [Reference Range]: 1 2 3 Height 168 cm (01/10/24 9:09 PM) 168 cm (01/10/24 6:11 PM) 168 cm (01/10/24 4:08 PM) Oxygen Saturation [94-100 %] 100 % (01/10/24 9:09 PM) 99 % (01/10/24 6:11 PM) 100 % (01/10/24 4:08 PM) Pulse Rate [55-90 bpm] 71 bpm (01/10/24 9:09 PM) 85 bpm (01/10/24 6:11 PM) 112 bpm *H* (01/10/24 4:08 PM) Blood Pressure [90-138/55-84 mm Hg] 137/86mm Hg (01/10/24 9:09 PM) 118/93mm Hg (01/10/24 6:11 PM) 118/67mm Hg (01/10/24 4:08 PM) Respiratory Rate [16-30 br/min] 18 br/min (01/10/24 9:09 PM) 20 br/min (01/10/24 6:11 PM) 22 br/min (01/10/24 4:08 PM) Temperature [96.8-100.4 DegF] 97.8 DegF (01/10/24 9:09 PM) 98.1 DegF (01/10/24 6:11 PM) 97.8 DegF (01/10/24 4:08 PM) Mode of Delivery (Oxygen) Room air (01/10/24 9:09 PM) Room air (01/10/24 6:11 PM) Room air (01/10/24 4:08 PM) Blood pressure sites Arm, left (01/10/24 9:09 PM) Arm, left (01/10/24 6:11 PM) Arm, left (01/10/24 4:08 PM) Temperature Route Oral (01/10/24 9:09 PM) Oral (01/10/24 6:11 PM) Oral (01/10/24 4:08 PM) Dry Weight 68.5 kg (01/10/24 9:09 PM) 68.5 kg (01/10/24 6:11 PM) 68.5 kg (01/10/24 4:08 PM) Dry Weight Obtained Via Patient/family s tated (01/10/24 4:08 PM) Social History Social History Type Response Smoking Status Never (less than 100 in lifetime) entered on: 06/15/22 Sex Note * Chase Ding DO: PERFORM Event Display: Patient Education Leaflets Authored Date: [id number] Physical Therapy Referral ?? 250 ?? This page is FOR PRESCRIBERS Only, ? DO NOT GIVE TO THE PATIENT?? Physical Therapy Referral Program for Management of Pain In an effort to reduce narcotic use, some of our ED patients will benefit from a direct [facility]?? [facility] will see INSURED patients and has a system in place to avoid sending follow up paperwork to the ED prescribers.? Note: Non-[facility] physical therapy services will probably NOT be able to handle ED generated PT referrals. ?? Patients should still follow up with their PCP as soon as possible regarding their ongoing care. Inform patients that [facility] will discuss insurance when they call.?? Some insurance plans limit the amount of PT a patient can receive each year. ?? Complete the FIRST PAGE of the patient???s referral sheet. [place] or write in diagnosis. M odify the timing for treatment, if needed. List any major precautions (i.e.?? Non-weight bearing limb), if needed. Sign, date and print your name at the bottom. ? Physical Therapy Referral Form Patient Instructions: You are being referred to physical therapy.?? This form is your referral and MUST be brought to your appointment. You need to call to set up your appointment. ?? This form can be used at any [facility] Physical Therapy location.?? A list of locations is attached.?? 1)?? DIAGNOSIS/ICD-10 (ho-chunk one) Cervicalgia: M54.2 ? Strain of muscle, fascia and tendon at neck level: S16.1XXD? Radiculopathy, cervical region: M54.12? Mid back pain: M54.9 ? Low back pain:?? M54.5 Strain of muscle, fascia and tendon of lower back: S39.012D Radiculopathy, lumbosacral region: M54.17 Other:? 2)? [? ]? Evaluate and Treat 2 Times/Week for 4 weeks as needed [? ]?Other: 3)? [? ]? No Precautions [? ]?Precautions: ?? I hereby certify these services as medically necessary for the patient???s plan of care. Physician???s Signature Date Physician Name (printed)? Locations You can call any location below.?? Tell them you were seen in a [facility] Emergency Department and have a referral form.?? Remember to bring your referral form with you to the appointment. [place] [address]? [place] [address] [address] [facility], [address]? [address] ? [place] [address]? [place] [address] [address] [facility]? [address] [facility] [address] [facility] [place] [address]? [place] [address] [place] [address] Road?[address] [place] [address] ? [place] [address]? [facility] [address] ? Patient Care team information Care Team Personnel Name: Stephanie Hoover Position: [facility] Outreach Member Role: Lifetime Consulting Physician Name: Maximiliano Wheatley MD Position: [facility] Physician - Pediatrics Member Role: PCP Address: Address: [address] [facility] [place] [address]- Care Team Related Persons Name: HOLLY FIELD Address: home [address] [place] [address] Name: SUZY FIELD Address: home [address] [place] [address]
--- OUTSIDE RECORDS SUMMARY | 2024-01-14 00:28 | XMS_ITS | Continuity of Care Document ---
Author Organization [facility] Address [address] [place] [address]- Care Team Providers Care Brand Mgr Name Role Phone Maximiliano Wheatley MD Primary Care Physician [phone] Encounter [facility] Date(s): 06/27/23 - 06/28/[address] [address]- Encounter Diagnosis Syncope(Final) - 06/28/23 Tremor(Final) - 06/28/23 Discharge Disposition: A-D/C Home Attending Physician: Margarette Snow DO Admitting Physician: Margarette Snow DO Referring Physician: Not on Staff, Referring MD Allergies, Adverse Reactions, Alerts Substance Reaction Severity Status amoxicillin rash Active Medications Ativan 1 mg oral tablet 1 tablet = 1 mg, By Mouth, 3 times a day, PRN for anxiety, for 3 days, # 9 tablet, 0 Refills, Acute06/30/23 23:40:00 EST, 06/27/23 23:40:00 EST, Tablet, [facility] #[id number], Partial fill upon patient request if the prescription is for a sched... Start Date: 06/27/23 Stop Date: 06/30/23 Status: Ordered Ativan 1 mg oral tablet 1 tablet = 1 mg, By Mouth, 2 times a day, PRN as needed for anxiety, 0 Refills, Maintenance, 06/28/23 12:57:00 EST, Tablet, Partial fill upon patient request if the prescription is for a schedule II opioid drug. Start Date: 06/28/23 Status: Ordered fludrocortisone 0.1 mg oral tablet 1 tablet = 0.1 mg, By Mouth, Daily, # 90 tablet, 0 Refills, Acute 12/14/23 15:53:00 EDT, 12/13/22 15:53:00 EDT, Tablet, [facility] #[id number], Partial fill upon patient request if the prescription is for a schedule II opioid drug., 168, cm, 11/20... Start Date: 12/13/22 Stop Date: 12/14/23 Status: Ordered metoprolol 25 mg oral tablet 12.5 mg, 0.5, tablet, By Mouth, 2 times a day, # 180 tablet, Refills 0, Tot. Refills 0, Maintenance, 12/13/22 15:55:00 EDT, Route to Pharmacy Electronically, [facility] #[id number], Partial fillupon patient request if the prescription is for a s... Start Date: 12/13/22 Status: Ordered Results Radiology Reports * Exam Date Time Procedure Performing Provider Status 06/27/23 9:[address] Head/Brain W/O Contrast Farooq Ospina; Auth (Verified) Notes: (CT Head/Brain W/O Contrast) Reason For Exam: Seizure Disorder RESULT: CT Head/Brain W/O Contrast CT Head/Brain W/O Contrast INDICATION: Hx of Present Illness: had syncopal episode at school, brought by ems to [facility] she is having entire body shaking tremors, is able to converse thru triage, LWBS from [facility] and is here for evaluations; Reason: Seizure Disorder; Clinical Question(s): Hematoma; Order Comment: 06 27 2023 21:15:17 EST pt with really bad full body tremor being medicated prior to imaging. TECHNIQUE: Noncontrast head CT using axial technique and reconstructed in axial and coronal planes.Iterative reconstruction techniques are used to optimize dose and image quality. CTDIvol Head: 47.44 mGy, DLP Head: 793 mGy*cm. COMPARISON: 11/18/2022. FINDINGS: Ultimate Hoops Referee view findings, lines and tubes: None. BRAIN AND EXTRA-AXIAL SPACES: No parenchymal hemorrhage, midline shift, or mass effect. Pavon-white matter differentiation is wellpreserved. No acute infarct. Similar mild prominent retrocerebellar CSF space, supporting cisterna magna. Ventricles, sulci, and basilar cisterns are normal. No white matter lesions. No subarachnoid hemorrhage. No subdural or epidural collection. CALVARIUM, SKULL BASE, AND SOFT TISSUES: No fractures or suspicious bony lesions. The paranasal sinuses and mastoid air cells show small polyps or retention cysts in the maxillary sinuses. Visualized orbits and globes are intact. The extracranial soft tissues are unremarkable. IMPRESSION: No acute intracranial pathology. This report is concordant with the preliminary vRAD report. WSN: [id number] Ordering Physician: Margarette Snow Dictated By: Adrianna Alvarez MD Dictated Date/Time: 06/28/23 8:45 am Reviewed By: Adrianna Alvarez MD Signed By: Adrianna Alvarez MD Signed Date/Time: 06/28/23 8:45 am Transcribed By: CARO Transcribed Date/Time: 06/28/23 8:34 am * Exam Date Time Procedure Performing Provider Status 06/27/23 9:38 PM Chest 2 Views Frontal and Lat Sarah Ospina; Auth (Verified) Notes: (Chest 2 Views Frontal and Lat) Reason For Exam: Shortness of Breath RESULT: Chest 2 Views Frontal and Lat Chest 2 Views Frontal and Lat Hx of Present Illness: had syncopal episode at school, brought by ems to [facility] she is having entire body shaking tremors, is able to converse thru triage, [place]BS from [facility] and is here for evaluations; Reason: Shortness of Breath; Clinical Question(s): Pneumonia; Order Comment: 06 27 2023 21:15:17 EST pt with really bad full body tremor being medicated prior to imaging. COMPARISON: 11/08/2022 FINDINGS: LINES AND TUBES: None. LUNGS AND PLEURA: Clear lungs. Normal pulmonary vascularity. No pleural effusion. No pneumothorax. HEART, MEDIASTINUM AND RHONDA: Heart is normal in size. Normal mediastinal and hilar contour. BONES AND SOFT TISSUES: No acute abnormality. IMPRESSION: No acute abnormality. WSN: [id number] Ordering Physician: Margarette Snow Dictated By: Elmer Dailey MD Dictated Date/Time: 06/27/23 9:42 pm Reviewed By: Elmer Dailey MD Signed By: Elmer Dailey MD Signed Date/Time: 06/27/23 9:42 pm Transcribed By: CARO Transcribed Date/Time: 06/27/23 9:42 pm Vital Signs Most recent to oldest [Reference Range]: 1 2 3 Height 163 cm (06/27/23 10:30 PM) 163 cm (06/27/23 8:33 PM) 163 cm (06/27/23 6:16 PM) Weight 65.4 kg (06/27/23 10:30 PM) 65.4 kg (06/27/23 8:33 PM) 65.4 kg (06/27/23 6:16 PM) Oxygen Saturation [94-100 %] 100 % (06/27/23 10:30 PM) 100 % (06/27/23 8:33 PM) 98 % (06/27/23 6:16 PM) Pulse Rate [55-90 bpm] 78 bpm (06/27/23 10:30 PM) 100 bpm *H* (06/27/23 8:33 PM) 99 bpm *H* (06/27/23 6:16 PM) Body Mass Index [18.5-24.99 kg/m2] 24.62 kg/m2 (06/27/23 10:30 PM) 24.62 kg/m2 (06/27/23 8:33 PM) Blood Pressure [90-138/55-84 mm Hg] 123/76mm Hg (06/27/23 10:30 PM) 126/87mm Hg (06/27/23 8:33 PM) 137/83mm Hg (06/27/23 6:16 PM) Respiratory Rate [16-30 br/min] 16 br/min (06/27/23 10:30 PM) 18 br/min (06/27/23 8:33 PM) 18 br/min (06/27/23 6:16 PM) Temperature [96.8-100.4 DegF] 98.7 DegF (06/27/23 6:16 PM) Mode of Delivery (Oxygen) Room air (06/27/23 10:30 PM) Room air (06/27/23 8:33 PM) Room air (06/27/23 6:16 PM) Blood pressure sites Arm, left (06/27/23 10:30 PM) Arm, right (06/27/23 8:33 PM) Temperature Route Temporal (06/27/23 6:16 PM) Dry Weight 65.4 kg (06/27/23 10:30 PM) 65.4 kg (06/27/23 8:33 PM) 65.4 kg (06/27/23 6:16 PM) Weight Obtained Via Standing scale (06/27/23 6:16 PM) Social History Social History Type Response Smoking Status Never (less than 100 in lifetime) entered on: 06/15/22 Sex Note * Margarette Snow DO: PERFORM, SIGN, VERIFY Event Display: Patient Education Handout Authored Date: [id number] * Margarette Snow DO: PERFORM Event Display: Patient Education Leaflets Authored Date: [id number] Fainting: Uncertain Cause ?? [id number] Fainting: Uncertain Cause Fainting (syncope) is a temporary loss of consciousness. It's often associated with a loss of postural tone. It???s also called passing out. It occurs when blood flow to the brain is less than normal. There are other causes of fainting, too. Near-fainting (near-syncope) is very similar to fainting,but you don???t fully pass out. In most cases, fainting occurs for reasons that aren't necessarily serious or life-threatening. Butit may still be dangerous if you fall or if it occurs while driving. Common triggers of less serious types of fainting include: ??? Sudden fear ??? Pain ??? Nausea ??? Emotional stress ??? Overexertion Suddenly standing up after sitting or lying for a long time can also cause fainting. More serious causes of fainting include: ??? Very slow or very fast heartbeat (arrhythmia) ??? Other types of heart disease, such as heart valve disease or coronary artery disease ??? Dehydration ??? Loss of blood ??? Stroke ??? Ruptured blood vessel in the brain Taking too much high blood pressure medicine can also cause low blood pressure and fainting. Your healthcare provider may be able to tell why you are fainting by reviewing your health history and hearing about your fainting episodes. If the cause of your fainting remains unknown or if your healthcare provider is concerned about a more serious cause he or she may determine that you need further testing. Testing may include: ??? Echocardiogram. This will take ultrasound pictures of your heart to evaluate the heart's structure and function ??? Stress test. This will check for abnormalities with you heart function or heartrhythm with exercise ??? Tilt table test. This evaluates for changes in blood pressure or heart rate when going from a laying position to standing ??? Heart monitoring. This will evaluate for heart rhythms that are too slow or too fast that may be the cause of your fainting ??? Lab tests. This can check for abnormalities in electrolytes, blood counts and other things Home care Follow these guidelines when caring for yourself at home: ??? Rest today. You may go back to your normal activities when you are feeling back to normal. It's best to stay with someone who can check on you for the next 24 hours to watch for another episode of fainting. ??? If you become lightheaded or dizzy, lie down right away and try to prop your feet above the level of your head. Or sit with your head between your knees. ??? Because the provider doesn???t know the exact cause of your faintingor near-fainting spell, it???s possible for you to have another spell without warning. Because of this, don???t drive a car or operate dangerous equipment until your healthcare provider says it's OK to do so. Don???t take a bath alone. Use a shower instead. Don???t swim alone??until your healthcareprovider says that you are no longer in danger of having another fainting spell. ?? Follow-up care Follow up with your healthcare provider, or as advised. Call 911 Call 911 if any of the following occur: ??? Another fainting spell that???s not explained by the common causes listed above ??? Pain in your chest, arm, neck, jaw, back, or belly (abdomen) ??? Shortness of breath ??? Severe headache or seizure ??? Blood in vomit or stools (black or red color) ??? Your heart beats very rapidly, very slowly, or irregularly (palpitations) ??? Weakness in an arm or leg or on 1 side of the face ??? Trouble speaking or seeing ??? Extreme drowsiness, confusion, or dizziness ?? Last Reviewed Date: 2021 ?? [id number] [employer]. All rights reserved. This information is not intended as a substitute for professional medical care. Always follow your healthcare professional's instructions. ?? Patient Care team information Care Team Personnel Name: Stephanie Hoover Position: [facility] Outreach Member Role: Lifetime Consulting Physician Name: Maximiliano Wheatley MD Position: [facility] Physician - Pediatrics Member Role: PCP Address: Address: [address] [place] [id number] Care Team Related Persons Name: HOLLY FIELD Address: [address] [place] [address] Name: SUZY FIELD Address: [address] [place] [address]
--- OUTSIDE RECORDS SUMMARY | 2024-01-14 00:28 | XMS_ITS | Continuity of Care Document ---
Author Organization [facility] Address [address] [place] [address]- Care Team Providers Care Jackscrew Worker Name Role Phone Maximiliano Wheatley MD Primary Care Physician Encounter [facility] Date(s): 01/30/23 - 03/01/23 [facility] [address] [place], [place] [address] Allergies, Adverse Reactions, Alerts Substance Reaction Severity Status amoxicillin rash Active Medications fludrocortisone 0.1 mg oral tablet 1 tablet = 0.1 mg, By Mouth, Daily, # 90 tablet, 0 Refills, Acute 12/14/23 15:53:00 EDT, 12/13/22 15:53:00 EDT, Tablet, [facility] #[id number], Partial fill upon patient request if the prescription is for a schedule II opioid drug., 168, cm, 11/20... Start Date: 12/13/22 Stop Date: 12/14/23 Status: Ordered metoprolol 25 mg oral tablet 12.5 mg, 0.5, tablet, By Mouth, 2 times a day, # 180 tablet, Refills 0, Tot. Refills 0, Maintenance, 12/13/22 15:55:00 EDT, Route to Pharmacy Electronically, [facility] #[id number], Partial fillupon patient request if the prescription is for a s... Start Date: 12/13/22 Status: Ordered Social History Social History Type Response Smoking Status Never (less than 100 in lifetime) entered on: 06/15/22 Sex Cardiology Outpatient Note * Renaldo SORIANO, Eri Qiu: PERFORM Event Display: Cardiology Note Office Authored Date: [id number] Patient: ??SANTY FIELD ? Age:??22 Years?Sex:??Female?:??2000?? To whom it may concern: ?? Santy Field is a patient at [facility] where she is treated for her history ofpostural tachycardia syndrome. She will be followed at [facility] going forward. Please do not hesitate to reach out with any questions or concerns. ?? Best, ?? Eri Macario APPAREL FASHION DESIGNER-C Patient Care team information Care Team Personnel Name: Maximiliano Wheatley MD Position: [facility] General Pediatrics MD Member Role: PCP Address: Address: [address] [place] [address]- Care Team Related Persons Name: HOLLY FIELD Address: [address] [place] [address] Name: SUZY FIELD Address: [address] [place] [address]
--- OUTSIDE RECORDS SUMMARY | 2024-01-14 00:28 | XMS_ITS | Continuity of Care Document ---
Author Organization [facility] Address [address] [place] [address]- Care Team Providers Care Optimization Engineer Name Role Phone Maximiliano Wheatley MD Primary Care Physician Encounter [facility] Date(s): 11/17/22 - 11/18/[address] [address]- Discharge Disposition: A-D/C Home Attending Physician: Bere Al MD Admitting Physician: Bere Al MD Referring Physician: Not on Staff, Referring MD Allergies, Adverse Reactions, Alerts Substance Reaction Severity Status amoxicillin rash Active Medications metoprolol 25 mg oral tablet 12.5 mg, 0.5, tablet, By Mouth, 2 times a day, # 180 tablet, Refills 0, Tot. Refills 0, Maintenance, 11/15/22 15:21:00 EDT, Route to Pharmacy Electronically, [email or web address] #[id number], Partial fillupon patient request if the prescription is for a s... Start Date: 11/15/22 Status: Ordered Results Radiology Reports * Exam Date Time Procedure Performing Provider Status 11/18/22 12:[address] Head/Brain W/O Contrast Tena Mckeon i; Auth (Verified) Notes: (CT Head/Brain W/O Contrast) Reason For Exam: headache with LOC;Headache(s) RESULT: CT Head/Brain W/O Contrast CT Head/Brain W/O Contrast INDICATION: Hx of Present Illness: Pt was at work, had a headache prior to LOC, co-worker caught Ptbefore she hit the ground. Mom states when she got there to pick her up she had difficulty walking to the car. Dizziness and severe nausea. No hx of migraines.; Reason: Headache(s); headache with LOC; Clinical Question(s): Other: TECHNIQUE: Noncontrast head CT using axial technique and reconstructed in axial and coronal planes.Iterative reconstruction techniques are used to optimize dose and image quality. CTDIvol Head: 49.33 mGy, DLP Head: 793 mGy*cm. COMPARISON: None. FINDINGS: Utilization Review Rn view findings, lines and tubes: None. BRAIN AND EXTRA-AXIAL SPACES: No parenchymal hemorrhage, midline shift, or mass effect. Pavon-white matter differentiation is wellpreserved. No acute infarct. Ventricles, sulci, and basilar cisterns are normal. No white matter lesions. No subarachnoid hemorrhage. No subdural or epidural collection. CALVARIUM, SKULL BASE, AND SOFT TISSUES: No fractures or suspicious bony lesions. Small right maxillary sinus polyp or mucus retention cyst. Visualized orbits and globes are intact. The extracranial soft tissues are unremarkable. Preliminary radiology report issued by [facility]. Agree with salient details of report. IMPRESSION: No evidence of acute intracranial abnormality. WSN: [id number] Ordering Physician: Bere Al Dictated By: Franky De Leon MD Dictated Date/Time: 11/18/22 8:33 am Reviewed By: Franky De Leon MD Signed By: Franky De Leon MD Signed Date/Time: 11/18/22 8:33 am Transcribed By: CAOR Transcribed Date/Time: 11/18/22 8:32 am Vital Signs Most recent to oldest [Reference Range]: 1 2 3 Height 168 cm (11/18/22 12:31 AM) 168 cm (11/17/22: PM) Weight 60.5 kg (11/17/22 9:23 PM) Oxygen Saturation [94-100 %] 99 % (11/18/22 12:31 AM) 100 % (11/17/22 9:23 PM) 100 % (11/17/22 9:21 PM) Pulse Rate [55-90 bpm] 59 bpm (11/18/22 12:31 AM) 97 bpm *H* (11/17/22 9:23 PM) 87 bpm (11/17/22 9:21 PM) Blood Pressure [90-138/55-84 mm Hg] 121/89mm Hg (11/18/22 12:31 AM) 130/76mm Hg (11/17/22 9:23 PM) Respiratory Rate [16-30 br/min] 20 br/min (11/18/22 12:31 AM) 16 br/min (11/17/22 9:23 PM) Temperature [96.8-100.4 DegF] 97.7 DegF (11/18/22 12:31 AM) 98.3 DegF (11/17/22 9:23 PM) Mode of Delivery (Oxygen) Room air (11/18/22 12:31 AM) Room air (11/17/22 9:23 PM) Room air (11/17/22 9:21 PM) Blood pressure sites Arm, left (11/18/22:31 AM) Arm, left (11/17/22 9:23 PM) Temperature Route Oral (11/18/22 12:31 AM) Temporal (11/17/22 9:23 PM) Dry Weight 60.5 kg (11/17/22 9:23 PM) Weight Obtained Via Standing scale (11/17/22 9:23 PM) Social History Social History Type Response Smoking Status Never (less than 100 in lifetime) entered on: 06/15/22 Sex Note * Servando ALFREDO, Bere Araujo: PERFORM Event Display: Patient Education Leaflets Authored Date: [id number] Fall with Uncertain Cause ?? [id number] Fall with Uncertain Cause You had a fall today. But the cause of your fall is not certain. Falls can happen due to slipping, tripping, or losing your balance. A fall can also happen from a fainting spell or seizure. A fall can happen for a simple reason (such as tripping over something). But falls in older adults are often caused by a combination of things: ??? Age-related decline in function with worsening balance, stability, vision, and muscle strength ??? Chronic illness, such as heart arrhythmias, heart valve disease, vascular disease, COPD, diabetes, stroke, or arthritis ??? Shoes with lack of support that make you likely to slip or slide ??? Anemia or low blood pressure? Effects or side effects of medicines ??? Fluid loss (dehydration) orrecent alcohol use ??? Hazards in your home or around you, such as??uneven surfaces, slippery ground, an unfamiliar place, or obstacles ??? Something linked to an activity you were doing, such as rushing to the bathroom The cause of your fall today is not certain. So it's possible that it was due to a fainting spell or seizure. This means that it could happen again without warning. If you fall again without a cause,come back to this facility right away for more tests. Or follow up with your healthcare provider asexplained below. It's normal to feel sore and tight in your muscles and back the next day, and not just the muscles you first injured. All the parts of your body are connected. So while at first one area hurts, the next day another may hurt. Also, when you injure yourself, it causes inflammation. This makes your muscles tighten up and hurt more. After that, it should slowly improve over the next few days. Tell your provider if you have any more severe pain. Even without a definite head injury, you can still get a concussion. Concussions and bleeding can still happen, especially if you had a recent injury. Or if you take blood-thinner medicine. You may also have a mild headache. And you may feel tired and even nauseous or dizzy. Home care ??? Rest today and resume your normal activities as soon as you feel normal again. It's best to stay with someone. They can check on you for the next 24 hours to see if you fall again. ??? If you were hurt during the fall, follow your healthcare provider's advice on caring for your injury. ??? If you get lightheaded or dizzy, lie down right away. Or sit and lean forward with your head down. ??? For your safety, until you see your healthcare provider: o Don't drive a car or operate dangerous equipment. o Don't take a bath or shower alone. o Don't swim alone. A condition causing fainting or seizures must be ruled out before doing these activities. ??? You may use acetaminophen or ibuprofen to control pain, unless another pain medicine was prescribed. Talk with your provider beforeusing these medicines if you: o Have chronic liver or kidney disease o Ever had a stomach ulcer or??gastrointestinal bleeding o Take blood- thinning medicines ??? Keep your appointments for any further testing that may have been scheduled for you. ?? Follow-up care Follow up with your healthcare provider, or as advised. If X-rays or a CT scan were done, you will be told if there is a change in the reading, especially if it affects treatment. ?? Call 911 Call 911 if any of these happen: ??? Trouble breathing ??? Confusion ??? Trouble waking up ??? Fainting or loss of consciousness ??? Fast or very slow heart rate ??? Seizure ??? Speech or vision problems ??? Arm or leg weakness ??? Trouble walking or talking, loss of balance, numbness or weakness on one side of your body, or facial droop ?? When to get medical advice Call your healthcare provider right away if any of these happen: ??? Another unexplained fall ??? Dizziness ??? Severe headache ??? Nausea and vomiting ??? Blood in vomit, stools (black or red color) ?? Last Reviewed Date: 2022 ?? [id number] [employer]. All rights reserved. This information is not intended as a substitute for professional medical care. Always follow your healthcare professional's instructions. ?? * Servando ALFREDO, Bere Araujo: PERFORM Event Display: Patient Education Leaflets Authored Date: [id number] Migraine Headache ?? [id number] Migraine Headache A migraine headache is an often severe type of headache. It's different from other types of headaches in that symptoms other than pain occur with it. For instance, a classic migraine headache means visual symptoms (or aura) such as flashes of light, blind spots, or other vision changes, warn you a headache is coming on. Nausea and vomiting, lightheadedness, sensitivity to light or sound, and other visual disturbances are common migraine symptoms.??The pain may last from a few hours to several days. It's not clear why migraines occur, but certain factors called triggers can raise the risk of having a migraine attack.??A migraine may be triggered by emotional stress??or depression, or by hormone changes during the menstrual cycle. Other triggers include certain control pills, overuse of migraine medicines, alcohol or caffeine, and foods with tyramine, such as aged cheese and wine. Eyestrain, weather changes, missed meals,??or too little or too much sleep can also trigger a migraine. Home care Follow these tips when taking care of yourself at home: ??? Don???t drive yourself home if you weregiven pain medicine for your headache or are having visual symptoms. Instead, have someone else drive you home. Try to sleep when you get home. You should feel much better when you wake up. ??? Cold can help ease migraine symptoms. Put an ice pack wrapped in a thin towel on your forehead or at the base of your skull. Put heat on the back of your neck to help ease any neck spasm. ??? Drink only clear liquids or eat a light diet until your symptoms get better. This will help you prevent nausea and vomiting. ?? How to prevent migraines Pay attention to what seems to trigger your headache. Try to stay away from the triggers when you can. If you have headaches often, consider keeping a headache diary. In it, write down what you were doing, feeling, or eating in the hours before each headache. Show this to your healthcare provider to help find the cause of your headaches. If stress seems to be a trigger for your headaches, figure out what is causing stress in your life.Learn new ways to handle your stress. Ideas include regular exercise, biofeedback, self-hypnosis, yoga, and meditation. Talk with your provider to find out more information about managing stress. Many books and digital media are also available on this subject. Tyramine is a substance found in many foods. It can trigger a migraine in some people. These foods contain tyramine: ??? Chocolate ??? Yogurt ??? All cheeses, but especially aged cheeses ??? Smoked or pickled fish and meat, including buckley, caviar, bologna, pepperoni, and salami ??? Liver ??? Avocados ??? Bananas??? Figs ??? Raisins ??? Red wine Try staying away from these foods for 1 to 2 months to see if you have fewer headaches. ?? How to treat future headaches ??? Take time out at the first sign of a headache, if possible. Find a quiet, dark, comfortable place to sit or lie down. Let yourself relax or sleep. ??? Put an ice pack wrapped in a thin towel on your forehead or on the area of greatest pain. A heating pad and massage may help if you are having a muscle spasm and tightness in your neck. ??? If you have been prescribed a medicine to stop a migraine headache, use this at the first warning sign of the headache for best results. First signs may be an aura or pain. ??? If you have been prescribed a medicine to prevent the headaches, it's important to take the medicine as directed. Many of these medicines may take a few weeks to start preventing headaches, so it's important to not give up on them right away. If you continue to have just as many headaches after taking these medicines for a while, talk with your healthcare provider to see if the dose needs to be changed or if a different medicine is advised. ??? If you need to take medicine often for your migraine, talk with your provider about other ways to prevent your headaches. ?? Follow-up care Follow up with your healthcare provider, or as advised. Talk with your provider if you have frequent headaches. They can figure out a treatment plan. Ask if you can have medicine to take at home the next time you get a bad headache. This may keep you from having to visit the emergency department inthe future. You may need to see a headache specialist (neurologist) if you continue to have headache s. ?? When to get medical care Call your healthcare provider right away??if any of these occur: ??? Your head pain gets worse, or doesn???t get better within 24 hours ??? You can???t keep liquids down (repeated vomiting) ??? Pain in your sinuses, ears, or throat ??? Fever of 100.4?? F (38?? C) or higher, or as advised by your provider ??? Stiff neck ??? Extreme drowsiness, confusion, or fainting ??? Dizziness, or dizziness with spinning sensation (vertigo) ??? Weakness or trouble feeling in an arm or leg, or on one side of your face ??? Trouble talking or seeing ?? Last Reviewed Date: 2021 ?? [id number] [employer]. All rights reserved. This information is not intended as a substitute for professional medical care. Always follow your healthcare professional's instructions. ?? Patient Care team information Care Team Personnel Name: Maximiliano Wheatley MD Position: [facility] General Pediatrics MD Member Role: PCP Address: Address: [address], [place] [address]- [place] Name: Bere Al MD Position: [facility] ED Medicine MD Member Role: ED Attending Physician Address: Address: [address] [place] [address]- [place] Name: Keisha Aguilera Position: [facility] ED TA [facility] Member Role: Cardiology Consultant Name: Laura Spencer RN Position: [facility] ED RN W/OE and Tasks Member Role: Patient Care Provider Care Team Related Persons Name: HOLLY FIELD Address: home [address] [place] [address] Name: ROSAMARIAWALTER SUZY Address: home [address] [place] [address]
--- OUTSIDE RECORDS SUMMARY | 2024-01-14 00:28 | XMS_ITS | Continuity of Care Document ---
Author Organization [facility] Address [address] [place] [address]- Care Team Providers Care Office Messenger Helper Name Role Phone Maximiliano Wheatley MD Primary Care Physician Encounter [facility] Date(s): 12/13/22 - 01/12/[address] [address] Attending Physician: Admtr, Yamileth Admitting Physician: AdmtrYamileth Referring Physician: Admtr, Ar8 Allergies, Adverse Reactions, Alerts Substance Reaction Severity Status amoxicillin rash Active Medications fludrocortisone 0.1 mg oral tablet 1 tablet = 0.1 mg, By Mouth, Daily, # 90 tablet, 0 Refills, Acute 12/14/23 15:53:00 EDT, 12/13/22 15:53:00 EDT, Tablet, [facility] #[id number], Partial fill upon patient request if the prescription is for a schedule II opioid drug., 168, cm, 2... Start Date: 12/13/22 Stop Date: 12/14/23 Status: Ordered metoprolol 25 mg oral tablet 12.5 mg, 0.5, tablet, By Mouth, 2 times a day, # 180 tablet, Refills 0, Tot. Refills 0, Maintenance, 12/13/22 15:55:00 EDT, Route to Pharmacy Electronically, [facility] #[id number], Partial fillupon patient request if the prescription is for a s... Start Date: 12/13/22 Status: Ordered Social History Social History Type Response Smoking Status Never (less than 100 in lifetime) entered on: 06/15/22 Sex Patient Care team information Care Team Personnel Name: Maximiliano Wheatley MD Position: [facility] General Pediatrics MD Member Role: PCP Address: Address: [address] [place] [address] [place] [address]- Care Team Related Persons Name: HOLLY FIELD Address: home [address] [place] [address] Name: ROSAMARIAWALTER SUZY Address: home [address] [place] [address]
--- OUTSIDE RECORDS SUMMARY | 2024-01-14 00:28 | XMS_ITS | Continuity of Care Document ---
Author Organization [facility] Address [address] [facility], [address] d Floor, [address] [place] [address]- Care Team Providers Care Aoc Operations Intelligence Chief Name Role Phone Corry ALFREDO, Maximiliano Conner Primary Care Physician [phone] [place] [facility] [place] 06/28[place]23 - 07/28/23 [facility] [address], [address], [address] [place] [address] Allergies, Adverse Reactions, Alerts Substance Reaction [...] 12/14/23 15:53:00 EDT, 12/13/22 15:53:00 EDT, Tablet, [facility] #[id number], Partial fill upon patient request if the prescription is for a schedule II opioid drug., 168, cm, 11/20... Start Date: 12/13/22 Stop Date: 12/14/23 Status: Ordered metoprolol 25 mg oral tablet 12.5 mg, 0.5, tablet, By Mouth, 2 times a day, # 180 tablet, Refills 0, Tot. Refills 0, Maintenance, 12/13/22 15:55:00 EDT, Route to Pharmacy Electronically, [facility] #[id number], Partial fillupon patient request if the prescription is for a s... Start Date: 12/13/22 Status: Ordered Social History Social History Type Response Smoking Status Never (less than 100 in lifetime) entered on: 06/15/22 Sex Patient Care team information Care Team Personnel Name: Stephanie Hoover Position: [facility] Outreach Member Role: Lifetime Consulting Physician Name: Maximiliano Wheatley MD Position: [facility] Physician - Pediatrics Member Role: PCP Address: Address: [address] [place] [address] Care Team Related Persons Name: HOLLY FIELD Address: [address] [place] [address] Name: SUZY FIELD Address: [address] [place] [address]
--- OUTSIDE RECORDS SUMMARY | 2024-01-14 00:28 | XMS_ITS | Continuity of Care Document ---
Author Organization [facility] Address [address] [place] [address]- Care Team Providers Care Patient Information Coordinator Name Role Phone Maximiliano Wheatley MD Primary Care Physician [phone] Encounter [facility] Date(s): 06/28/23 - 06/28/[address] [address]- Discharge Disposition: A-D/C Home Attending Physician: Abhishek [...] Acute06/30/23 23:40:00 EST, 06/27/23 23:40:00 EST, Tablet, [facility] #[id number], Partial fill upon patient request if the [...] 12/14/23 15:53:00 EDT, 12/13/22 15:53:00 EDT, Tablet, [facility] #[id number], Partial fill upon patient request if the prescription is for a schedule II opioid drug., 168, cm, 11/20... Start Date: 12/13/22 Stop Date: 12/14/23 Status: Ordered metoprolol 25 mg oral tablet 12.5 mg, 0.5, tablet, By Mouth, 2 times a day, # 180 tablet, Refills 0, Tot. Refills 0, Maintenance, 12/13/22 15:55:00 EDT, Route to Pharmacy Electronically, [facility] #[id number], Partial fillupon patient request if the prescription is for a s... Start Date: 12/13/22 Status: Ordered Vital Signs Most recent to oldest [Reference Range]: 1 2 Height 168 cm (06/28/23 12:55 PM) Weight 67.8 kg (06/28/23 12:55 PM) Oxygen Saturation [94-100 %] 100 % (06/28/23 12:55 PM) 99 % (06/28/23 12:54 PM) Pulse Rate [55-90 bpm] 105 bpm *H* (06/28/23 12:55 PM) 106 bpm *H* (06/28/23 12:54 PM) Blood Pressure [90-138/55-84 mm Hg] 126/ 97mm Hg (06/28/23 12:55 PM) Respiratory Rate [16-30 br/min] 20 br/mi n (06/28/23 12:55 PM) Temperature [96.8-100.4 DegF] 98.0 DegF (06/28/23 12:55 PM) Mode of Delivery (Oxygen) Room air (06/28/23 12:55 PM) Blood pressure sites Arm, left (06/28/23 12:55 PM) Temperature Route Temporal (06/28/23 12:55 PM) Dry Weight 67.8 kg (06/28/23 12:55 PM) Weight Obtained Via Standing scale (06/28/23 12:55 PM) Dry Weight Obtained Via Standing scale (06/28/23 12:55 PM) Social History Social History Type Response Smoking Status Never (less than 100 in lifetime) entered on: 06/15/22 Sex Patient Care team information Care Team Personnel Name: Stephanie Hoover Position: [facility] Outreach Member Role: Lifetime Consulting Physician Name: Corry ALFREDO, Maximiliano Conner Position: [facility] Physician - Pediatrics Member Role: PCP Address: Address: [address] [place] [address]- Care Team Related Persons Name: NAIFTORSTENWALTER HOLLY Address: [address] [place] [address] Name: SUZY FIELD Address: [address] [place] [address]
--- OUTSIDE RECORDS SUMMARY | 2024-01-14 00:28 | XMS_ITS | Continuity of Care Document ---
Author Organization [facility] [place] Address [address] [place] [address]- Care Team Providers Care Rental Sales Agent Name Role Phone Maximiliano Wheatley MD Primary Care Physician Encounter [facility] Date(s): 09/02/22 - 10/02/22 [facility] [address] [place] [address]- Allergies, Adverse Reactions, Alerts Substance Reaction Severity Status amoxicillin rash Active Social History Social History Type Response Smoking Status Never (less than 100 in lifetime) entered on: 06/15/22 Sex Patient Care team information Care Team Personnel Name: Maximiliano Wheatley MD Position: [facility] General Pediatrics MD Member Role: PCP Address: Address: [address] [place] [address]- Care Team Related Persons Name: HOLLY FIELD Address: [address] [place] [address] Name: SUZY FIELD Address: [address] [place] [address]
--- OUTSIDE RECORDS SUMMARY | 2024-01-14 00:28 | XMS_ITS | Continuity of Care Document ---
Author Organization [facility] [place] Address [address] [place] [address]- Care Team Providers Care Wine Pasteurizer Name Role Phone Maximiliano Wheatley MD Primary Care Physician [phone] Encounter [facility] Date(s): 11/21/22 - 12/21/22 [facility] [address] [place], [place] [address] Allergies, Adverse Reactions, Alerts Substance Reaction Severity Status amoxicillin rash Active Medications fludrocortisone 0.1 mg oral tablet 1 tablet = 0.1 mg, By Mouth, Daily, # 90 tablet, 0 Refills, Acute 12/14/23 15:53:00 EDT, 12/13/22 15:53:00 EDT, Tablet, [facility] #[id number], Partial fill upon patient request if the prescription is for a schedule II opioid drug., 168, cm, 11/20... Start Date: 12/13/22 Stop Date: 12/14/23 Status: Ordered metoprolol 25 mg oral tablet 12.5 mg, 0.5, tablet, By Mouth, 2 times a day, # 180 tablet, Refills 0, Tot. Refills 0, Maintenance, 12/13/22 15:55:00 EDT, Route to Pharmacy Electronically, [facility] #[id number], Partial fillupon patient request if the prescription is for a s... Start Date: 12/13/22 Status: Ordered Social History Social History Type Response Smoking Status Never (less than 100 in lifetime) entered on: 06/15/22 Sex Patient Care team information Care Team Personnel Name: Maximiliano Wheatley MD Position: [facility] MD Member Role: PCP Address: Address: [address] [place] [address] Care Team Related Persons Name: HOLLY FIELD Address: [address] [place] [address] Name: SUZY FIELD Address: [address] [place] [address]
--- OUTSIDE RECORDS SUMMARY | 2024-01-14 00:28 | XMS_ITS | Continuity of Care Document ---
Author Organization [facility] ter Address [address] [place] [id number]- Care Team Providers Care Skull Grinder Name Role Phone Maximiliano Wheatley MD Primary Care Physician [phone] [place] [facility] Date(s): 06/27/23 - 06/27/[address] [address]- Discharge Disposition: A-D/C Walkout Attending Physician: Not on Staff, Attending MD Admitting Physician: Not on Staff, Admitting MD Referring Physician: Not on Staff, Referring MD Allergies, Adverse Reactions, Alerts Substance Reaction Severity Status amoxicillin rash Active Medications Ativan 1 mg oral tablet 1 tablet = 1 mg, By Mouth, 3 times a day, PRN for anxiety, for 3 days, # 9 tablet, 0 Refills, Acute06/30/23 23:40:00 EST, 06/27/23 23:40:00 EST, Tablet, [facility] #[id number], Partial fill upon patient request if the prescription is for a sched... Start Date: 06/27/23 Stop Date: 06/30/23 Status: Ordered fludrocortisone 0.1 mg oral tablet 1 tablet = 0.1 mg, By Mouth, Daily, # 90 tablet, 0 Refills, Acute 12/14/23 15:53:00 EDT, 12/13/22 15:53:00 EDT, Tablet, [facility] #[id number], Partial fill upon patient request if the prescription is for a schedule II opioid drug., 168, cm, 2... Start Date: 12/13/22 Stop Date: 12/14/23 Status: Ordered metoprolol 25 mg oral tablet 12.5 mg, 0.5, tablet, By Mouth, 2 times a day, # 180 tablet, Refills 0, Tot. Refills 0, Maintenance, 12/13/22 15:55:00 EDT, Route to Pharmacy Electronically, [facility] #[id number], Partial fillupon patient request if the prescription is for a s... Start Date: 12/13/22 Status: Ordered Social History Social History Type Response Smoking Status Never (less than 100 in lifetime) entered on: 06/15/22 Sex Patient Care team information Care Team Personnel Name: Corry ALFREDO, Maximiliano Conner Position: [facility] Physician - Pediatrics Member Role: PCP Address: Address: [address] [place] [address]- Care Team Related Persons Name: HOLLY FIELD Address: [address] [place] [address] Name: SUZY FIELD Address: home [address] [place] [address]
--- OUTSIDE RECORDS SUMMARY | 2024-01-14 00:28 | XMS_ITS | Continuity of Care Document ---
Author Organization [facility] Address [address] [place] [address]- Care Team Providers Care Senior National Account Manager Name Role Phone Maximiliano Wheatley MD Primary Care Physician Encounter [facility] Date(s): 06/14/22 - 06/14/[address] [address]- Encounter Diagnosis Near syncope(Final) - 06/14/22 Discharge Disposition: A-D/C Home Attending Physician: Karyna Graves MD Admitting Physician: Karyna Graves MD Referring Physician: Not on Staff, Referring MD Allergies, Adverse Reactions, Alerts Substance Reaction Severity Status amoxicillin rash Active Results Radiology Reports * Exam Date Time Procedure Performing Provider Status 06/14/22 8:34 PM Chest 2 Views Frontal and Lat Ansley Espinal (Verified) Notes: (Chest 2 Views Frontal and Lat) Reason For Exam: Shortness of Breath, Fever;Other: RESULT: Chest 2 Views Frontal and Lat Chest 2 Views Frontal and Lat Hx of Present Illness: Pt states that while at school she had presyncopal event. Pt went to [facility] and felt ears ringing, dizzy, had to lay down , doesn't remember much - doesn't think she lostconsciousness. Went to urgent care they took EKG and were concerned and sent here; Reason: Other:; Shortness of Breath, Fever; Clinical Question(s): Pneumonia COMPARISON: None FINDINGS: LINES AND TUBES: None. LUNGS AND PLEURA: The lungs are clear. No pleural effusion. No pneumothorax. HEART, MEDIASTINUM AND RHONDA: Normal. BONES AND SOFT TISSUES: Normal. IMPRESSION: Normal. WSN: [id number] Ordering Physician: Karyna Graves Dictated By: Maciel Rasheed MD Dictated Date/Time: 06/14/22 8:40 pm Reviewed By: Maciel Rasheed MD Signed By: Maciel Rasheed MD Signed Date/Time: 06/14/22 8:40 pm Transcribed By: CARO Transcribed Date/Time: 06/14/22 8:39 pm Vital Signs Most recent to oldest [Reference Range]: 1 2 3 Height 165 cm (06/14/22 6:14 PM) 165 cm (06/14/22 4:35 PM) 165 cm (06/14/22 4:30 PM) Weight 59.3 kg (06/14/22 6:14 PM) 59.3 kg (06/14/22 4:35 PM) 59.3 kg (06/14/22 4:30 PM) Oxygen Saturation [94-100 %] 99 % (06/14/22 10:00 PM) 99 % (06/14/22 8:00 PM) 96 % (06/14/22 6:14 PM) Pulse Rate [55-90 bpm] 84 bpm (06/14/22 10:00 PM) 74 bpm (06/14/22 8:00 PM) 78 bpm (06/14/22 6:14 PM) Body Mass Index [18.5-24.99 kg/m2] 21.78 kg/m2 (06/14/22 6:14 PM) 21.78 kg/m2 (06/14/22 4:30 PM) Blood Pressure [90-138/55-84 mm Hg] 121/59mm Hg (06/14/22 10:00 PM) 119/74mm Hg (06/14/22 8:00 PM) 118/78mm Hg (06/14/22 6:14 PM) Respiratory Rate [16-30 br/min] 18 br/min (06/14/22 10:00 PM) 20 br/min (06/14/22 8:00 PM) 18 br/min (06/14/22 6:14 PM) Temperature [96.8-100.4 DegF] 98.3 DegF (06/14/22 10:00 PM) 97.9 DegF (06/14/22 8:00 PM) 98.5 DegF (06/14/22 4:30 PM) Mode of Delivery (Oxygen) Room air (06/14/22 10:00 PM) Room air (06/14/22 8:00 PM) Room air (06/14/22 4:30 PM) Temperature Route Oral (06/14/22 10:00 PM) Oral (06/14/22 8:00 PM) Temporal (06/14/22 4:30 PM) Dry Weight 59.3 kg (06/14/22 6:14 PM) 59.3 kg (06/14/22 4:35 PM) 59.3 kg (06/14/22 4:30 PM) Height Percentile 60.15 % 1 (06/14/22 6:14 PM) 60.15 % 2 (06/14/22 4:35 PM) 60.15 % 3 (06/14/22 4:30 PM) Height ZScore 0.26 4 (06/14/22 6:14 PM) 0.26 5 (06/14/22 4:35 PM) 0.26 6 (06/14/22 4:30 PM) Weight Percentile Per Age 54.42 % 7 (06/14/22 6:14 PM) 54.42 % 8 (06/14/22 4:35 PM) 54.42 % 9 (06/14/22 4:30 PM) BMI Percentile 50.82 10 (06/14/22 6:14 PM) 50.82 11 (06/14/22 4:30 PM) BMI ZScore 0.02 12 (06/14/22 6:14 PM) 0.02 13 (06/14/22 4:30 PM) Weight ZScore 0.11 14 (06/14/22 6:14 PM) 0.11 15 (06/14/22 4:35 PM) 0.11 16 (06/14/22 4:30 PM) 1Result Comment: ^~:!Percentile Source -CDC/WHO 2Result Comment: ^~:!Percentile Source -CDC/WHO 3Result Comment: ^~:!Percentile Source -CDC/WHO 4Result Comment: ^~:!ZScore Source -CDC/WHO 5Result Comment: ^~:!ZScore Source -CDC/WHO 6Result Comment: ^~:!ZScore Source -CDC/WHO 7Result Comment: ^~:!Percentile Source -CDC/WHO 8Result Comment: ^~:!Percentile [facility]/WHO 9Result Comment: ^~:!Percentile [facility]/WHO 10Result Comment: ^~:!Percentile [facility]/WHO 11Result Comment: ^~:!Percentile [facility]/WHO 12Result Comment: ^~:!ZScore [facility]/WHO 13Result Comment: ^~:!ZScore [facility]/WHO 14Result Comment: ^~:!ZScore [facility]/WHO 15Result Comment: ^~:!ZScore [facility]/WHO 16Result Comment: ^~:![facility] Note * Karyna Graves MD: PERFORM Event Display: Patient Education Leaflets Authored Date: Near-Fainting: Vagal Reaction ?? [id number] Near-Fainting: Vagal Reaction Fainting (syncope) is passing out. It's a temporary loss of consciousness. Near- fainting is feelinglike you are going to faint. But you don't lose consciousness. Fainting and near-fainting can be caused by a vagal reaction (or overstimulation of the vagus nerve). This is something you can't control. It's the body's involuntary response to a physical or emotional stress. This reaction causes a sudden drop in your blood pressure or a slowed heart rate. As a result, not enough blood goes to your brain. Lying down often stops the reaction very quickly. These are symptoms of near-fainting: ??? Feeling lightheaded or like you are going to faint ??? Weak pulse ??? Upset stomach (nausea) ??? Sweating ??? Blurred vision or feeling like your vision is blacking out ??? Trouble breathing ??? Cool and moist skin Causes for near-fainting include: ??? Sudden emotional stress such as fear, pain, panic, or the sight of blood ??? Straining or overexertion, straining while using the toilet, coughing, or sneezing ??? Standing up too quickly or standing up for too long a time ? Some medicines ??? Fluid loss (dehydration) Home care These tips will help you care for yourself at home: ??? Rest today and go back to your normal activities when you feel back to normal. ??? If you get lightheaded or dizzy, lie down right away. Put your legs up so they are higher than your heart. ??? If you are sitting down and feel faint, don't stand up. This may make the feeling worse. ??? Drink plenty of fluids, and don't skip meals. ??? Don't stand for long periods or stay in??hot places. ??? Do what you can to prevent constipation. If you bear down a lot when trying to poop (have a bowel movement), this can trigger a vagal response. Check with your healthcare provider to see if you need tests, such as a tilt- table test, heart rhythm monitoring, or blood tests. Review the medicines you take with your provider and pharmacist. Makesure the symptoms you have are not a side effect of a medicine. ?? Follow-up care Follow up with your healthcare provider, or as advised.?? If you have frequent episodes of near-fainting or vagal reactions, be careful about activities suchas driving. You could harm yourself or others if you were to faint. Don't drive or operate heavy machinery if you are feeling like you may faint. ?? Call 911 Call 911 if any of these occur: ??? Another fainting spell not explained by the common causes listed above ??? Chest, arm, neck, jaw, back, or belly (abdominal) pain ??? Shortness of breath ??? Weakness, tingling, or numbness in 1 side of the face, or 1 arm or leg ??? Slurred speech, confusion, or trouble walking or seeing ??? Seizure ??? Blood in vomit or poop (black or red color) ?? When to get medical care Call your healthcare provider right away if you sometimes have mild lightheadedness, especially when standing up. ?? Last Reviewed Date: 2022 ?? [id number] [employer]. All rights reserved. This information is not intended as a substitute for professional medical care. Always follow your healthcare professional's instructions. ?? * BHSPowerscribe , CIS S: TRANSCRIMaciel Loving MD: VERIFY Event Display: Result: Authored Date: [id number] Chest 2 Views Frontal and Lat Hx of Present Illness: Pt states that while at school she had presyncopal event. Pt went to [facility] and felt ears ringing, dizzy, had to lay down , doesn't remember much - doesn't think she lostconsciousness. Went to urgent care they took EKG and were concerned and sent here; Reason: Other:; Shortness of Breath, Fever; Clinical Question(s): Pneumonia COMPARISON: None FINDINGS: LINES AND TUBES: None. LUNGS AND PLEURA: The lungs are clear. No pleural effusion. No pneumothorax. HEART, MEDIASTINUM AND RHONDA: Normal. BONES AND SOFT TISSUES: Normal. IMPRESSION: Normal. WSN: [id number] Ordering Physician: Karyna Graves Dictated By: Maciel Rasheed MD Dictated Date/Time: 06/14/22 8:40 pm Reviewed By: Maciel Rasheed MD Signed By: Maciel Rasheed MD Signed Date/Time: 06/14/22 8:40 pm Transcribed By: CARO Transcribed Date/Time: 06/14/22 8:39 pm Patient Care team information Care Team Personnel Name: Maximiliano Wheatley MD Position: [facility] General Pediatrics MD Member Role: PCP Address: Address: [address] [place] [address] Name: Emily Rowland Position: [facility] ED OA Member Role: Patient Care Provider Name: Laura Spencer RN Position: [facility] ED RN W/OE and Tasks Member Role: Patient Care Provider Name: Solomon Holden RN Position: [facility] ED RN W/OE and Tasks Member Role: Patient Care Provider Name: Karyna Graves MD Position: [facility] Resident Member Role: Admitting Physician Address: Address: [address] [place] [address] Emergency Medicine [address]
== END 2024-01-12 20:47 | disposition home or self-care (01) ==
PROVIDERS: Nurse Practitioner Family; Physician Assistant Medical; Emergency Provider Emergency Medicine Emergency Medical Services; PCP Internal Medicine
DX: G90.A Postural orthostatic tachycardia syndrome [POTS] (principal); R25.1 Tremor, unspecified; R00.0 Tachycardia, unspecified; R06.02 Shortness of breath; Z79.899 Other long term (current) drug therapy; Z03.818 Encounter for observation for suspected exposure to other biological agents ruled out
CPT/HCPCS: 0241U; 80053; 81003; 81025; 82550; 83735; 84443; 85025; 93005; 96361; 96374; 96375; 96376; 99284; J2060; J2405

== ENCOUNTER 2024-01-17 14:29 | Outpatient (AMB) | payer BC, SELFPAY ==
[2024-01-17 14:35] VITALS: BP 124/68; PULSE 104; BMI 24.2
--- NOTE | 2024-01-17 14:35 | MHC.OFFVIS ---
Vital Signs 01/17/24 14:35 01/17/24 14:51 01/17/24 14:51 01/17/24 14:51 Height 5 ft 6 in Weight 150 lb BMI 24.2 BP 124/68 129/87 159/126 H 145/79 H Blood Pressure Location Lt brachial Lt brachial Lt brachial Lt brachial Position Sitting Supine Sitting Standing Pulse 104 H 100 248 H 157 H Pulse Source Pulse Oximeter Pulse Oximeter Pulse Oximeter Pulse Oximeter Intake Visit Reasons: [employer] [employer]- [facility] [place] fu/ POTS ([place]) (KM) Allergies amoxicillin Allergy (Mild, Verified 01/12/24 16:08) Hives HPI Comments Details: 23-year-old patient presents today for new patient visit. She has a history of postural orthostatic tachycardia syndrome. She was diagnosed with that within the last year and a half. She is transferred to us from [facility] due to having flares and unable to get into her provider. She states she was recently at work about a week and a half ago and felt syncopal. Her vision got blurry and she braced herself down. Since then she has been having constant tremor in which is generalized all over her body. She reports she has lost 8 lb. She feels better when she is just lying down but if she gets up it worsens. She states her average ambulatory heart rate is 140-150. She has been on metoprolol low dose in the past and was just prescribed propranolol from her primary care provider. She states she had least salt everything and drinks plenty of fluids. Estimation 80-100 oz a day. She has had this happen one other time back in Jun and the tremors lasted about two weeks. She has [place] [facility] [place] without much help. She is waiting to get into neurology. Her mother is present with her today. [facility] Medical History Tremor POTS (postural orthostatic tachycardia syndrome) Family History Paternal Grandmother Chronic a-fib Social History Alcohol intake: never Patient Tobacco Use Status: Never used Tobacco Review of Systems Const Denies weakness ENT Denies dizziness Card Denies chest pain, Denies chest pain with activity, Denies syncope, Denies rapid heart rate, Denies pedal edema, Denies edema, Denies leg edema, Denies lightheadedness, Denies palpitations, Denies dyspnea, Denies dyspnea on exertion and Denies orthopnea Resp Denies cough, Denies dyspnea and Denies dyspnea on exertion GI Denies hematochezia and Denies change in stool character Musc Denies abnormal gait, Denies muscle cramps, Denies muscle weakness, Denies numbness, Denies radiating pain into limb and Denies tingling Neuro Denies abnormal gait, Denies dizziness, Denies syncope, Denies numbness, Denies tingling and Denies weakness Endo Denies palpitations Physical Exam Vital Signs: Last Vital Signs Pulse 157 H 01/17/24 14:51 BP 145/79 H 01/17/24 14:51 BMI result Body Mass Index 24.2 Const General: healthy appearing and no acute distress Orientation/consciousness: patient oriented x3 HEENT Head: Yes normal to inspection Eyes General: appearance normal, both eyes and all related structures Neck Neck: Yes normal visual inspection Chest Chest palpation & inspection: normal inspection of the chest Resp Effort & Inspection: normal respiratory effort Auscultation: clear to auscultation bilaterally Cardio Jugular venous distension: no JVD Palpation: normal PMI Rate: regular rate Rhythm: regular rhythm Heart sounds: S1 normal heart sound present, S2 normal heart sound present, no click, no gallops, no murmurs and no rubs GI Inspection: Yes normal to inspection Palpation (GI): Soft to palpation Skin General skin exam: no rashes or lesions noted Neuro General: patient oriented x3 Extrem General: Yes normal to inspection Psych Appearance: grossly normal Assessment & Plan Assessment & Plan (1) POTS (postural orthostatic tachycardia syndrome): Code(s): G90.A - Postural orthostatic tachycardia syndrome [POTS] Category: Medical (2) Tremor: Code(s): R25.1 - Tremor, unspecified Category: Medical Plan History of postural orthostatic tachycardia syndrome. Was at [facility] and [facility] for ED care. Attempted to do orthostatic blood pressures but due to tremors and automatic cuff readings are inaccurate. Patient is having full body tremoring. States when she was in the emergency room she was given lorazepam without much effect. Advised that this is unlikely to be related to POTS. Appears to be neuromuscular. Advise emergency room care for adequate hydration and something to help with the tremor in. Patient and mother declined at this time due to 2 recent emergency room visits. They are going to attempt to get into neurology for an [facility] appointment. We will request records from [facility]. Patient has yet to start propranolol they plan to pick it up today. Coding Level of Care Code New Pt Level 4 (46686) Diagnoses POTS (postural orthostatic tachycardia syndrome) G90.A Tremor R25.1
[2024-01-17 14:51] VITALS: BP 129/87; BP 145/79; BP 159/126; PULSE 100; PULSE 157; PULSE 248
== END 2024-01-17 15:52 | disposition home or self-care (01) ==
PROVIDERS: PCP Internal Medicine; Visit Provider Nurse Practitioner
DX: G90.A Postural orthostatic tachycardia syndrome [POTS] (principal); R25.1 Tremor, unspecified
CPT/HCPCS: 99204

== ENCOUNTER → 2024-01-17 14:29 | Outpatient (BNVA) | payer BC, SELFPAY | PROVIDERS: PCP Internal Medicine; Visit Provider Nurse Practitioner | DX: G90.A Postural orthostatic tachycardia syndrome [POTS] (principal); R25.1 Tremor, unspecified ==

== ENCOUNTER 2024-02-09 08:11 | Outpatient (AMB) | payer BC, SELFPAY ==
--- NOTE | 2024-02-09 08:20 | A.OFFVIS_ITS ---
Vital Signs 02/09/24 08:21 02/09/24 08:49 Height 5 ft 6 in Weight 149 lb 7.574 oz BMI 24.1 BP 96/70 Blood Pressure Location Lt brachial Position Sitting Pulse 47 L 64 Pulse Source Pulse Oximeter Palpation Intake Visit Reasons: Thyromegaly/CONFIRMED Intake Note: Patient present today for Thyromegaly office visit. 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 Here with mother Cathie Nontoxic goiter Thyroid ultrasound from December 2023 showed enlarged thyroid gland with no nodules. Hypervascular, heterogeneous gland. TSH within normal limits from December 2023. Tremors developed Jun 2023 and self resolbed and then again the past month, sudden onset , all the time. Reports heat intolerance. Reports palpitations with standing, diagnosis of POTS since 2021, follow neurology and cardiology. Lost 10 lbs in the last year and then gaining it back. Reports fatigue. Reports increased diaphoreisis. Patient currently denies, diarrhea or constipation, hair loss, anxiety, weight changes, mood changes, changes in appearance of eyes or vision changes, tremors or dry skin. ?Menses regular , LMP January 13. Patient denies any difficulty swallowing, pain on swallowing or voice changes or difficulty breathing. Patient denies any history of childhood neck radiation. Denies having ever used lithium, amiodarone or biotin supplements. Patient denies any family history of thyroid cancer. Mother : hypothyroidism Hyperadrenergic symptoms Has a diagnosis of POTS diagnosed 2021, following neurology Started on propranolol for POTS and tremors for the past month Maternal grandmother: Afib Paternal grandmother: 2 strokes above the age of 50 Mother: HTN less than age 40 Does complain of spells of pallor, SOB, nausea, headache, palpitations, perspiration. Mostly when standing sometimes when sitting Social history Gas Station Service Attendant Any smoking Any drug use No alcohol use Live with parents Review of systems Constitutional: no fevers, chills HEENT: no changes in vision Cardiac: No chest pain Pulmonary: No SOB Physical exam General: sitting comfortably in no acute distress HEENT: normocephalic/atraumatic, moist oral mucosa Neck: supple, symmetrical, prominenet thyroid gland , no dorsocervical or supraclavicular fat pads Cardiac: normal heart sounds Pulm: normal breath sounds B/L, no added breath sounds Abd: not distended, no tenderness Extremities: no edema, no signs of myxedema, no tremors noted Neuro: AAO x3, Speech: normal, no facial droop, moving all 4 extremities [facility] Medical History (Updated 02/09/24 @ 08:26 by Patricia Katz MD) Goiter Tremor POTS (postural orthostatic tachycardia syndrome) Family History Paternal Grandmother Chronic a-fib Social History Alcohol intake: never Patient Tobacco Use Status: Never used Tobacco Results Reviewed Results Reviewed: Laboratory Tests 11/29/23 01/12/24 09:00 17:32 TSH 3.73 3.35 Free T4 0.79 US THYROID 01/12 I reviewed the images myself, which do show a heterogenous, enlarged thyroid gland with increased vascularity. No nodules noted. CLINICAL INFORMATION: Goiter. COMPARISON: None available. TECHNIQUE: Linear transducer grayscale and color Doppler examination with attention to the region of the thyroid. FINDINGS: SIZE: Measurements of the thyroid lobes and nodules are given in sagittal, anteroposterior and transverse dimensions respectively. Right Thyroid Lobe: 5.7 x 1.8 x 1.6 cm, volume 8.5 mL. Parenchyma: The gland echotexture is heterogeneous. Thyroid vascularity is hypervascular. Left Thyroid Lobe: 5.6 x 2.7 x 2.3 cm, volume 18.7 mL. Parenchyma: The gland echotexture is heterogeneous. Thyroid vascularity is hypervascular. Isthmus: 0.7 cm in maximum AP dimension. Estimated total number of nodules greater than or equal to 1 cm: 0. Interior Decorator nodules are described as follows: NODES: No lymphadenopathy is seen in the tissue surrounding the thyroid gland. US/US thyroid IMPRESSION: Diffusely heterogeneous, hypervascular thyroid gland. Enlarged thyroid gland, left lobe greater than right. No suspicious thyroid nodules identified. Assessment & Plan Assessment & Plan (1) Goiter: Code(s): E04.9 - Nontoxic goiter, unspecified Category: Medical Plan: Patient with no personal history of head or neck radiation, no family history of thyroid cancer, coming in today for initial evaluation of enlarged thyroid gland. Thyroid ultrasound done in December 2023 by primary care physician. I reviewed the images and she does have a hypervascular, enlarged gland. However her thyroid function testing has been normal both in November and December 2023. Patient does have some symptoms of palpitations, heat intolerance, tremors however she has been diagnosed with POTS and following with Neurology and Cardiology. Likely symptoms are related to that. At this point, given normal thyroid function testing in no compressive symptoms, no need for any medical intervention. She can have her thyroid function testing checked by her primary care physician every year as she is at increased risk of developing thyroid dysfunction . Mother has Shannan's thyroiditis. Plan: -counseled patient about symptoms of hypothyroidism and hyperthyroidism in to get labs done thyroid function testing if those happened -primary care physician to check annual thyroid function tests including TSH and free T4 (2) Tremor: Code(s): R25.1 - Tremor, unspecified Category: Medical Plan: Patient was diagnosed with POTS in 2021, she has had episodes of syncope, tremors. She has tachycardia which is mostly postural. She is being managed on propranolol. Patient is complaining of hyperadrenergic spells where she gets headaches, nausea, palpitations, possible pallor, tachycardia and elevated blood pressures. Family history of stroke in grandmother but not at a young age. She does have increased anxiety. We will check plasma metanephrine and normetanephrine to evaluate her for possible pheochromocytoma. However explain ed to the patient that this is a rare condition. And most likely her symptoms are related POTS we will screen her. Plan: -check plasma metanephrine/normetanephrine levels. We will call her with the lab results. If labs are normal she can follow up with her primary care physician. If they are abnormal, we will arrange follow up and decide further steps. All questions were answered. Patient and her mother verbalized understanding and agreed with the plan. Plan I spent 45 minutes in reviewing the record, seeing the patient and documenting in the medical record. Orders: Orders Metanephrines, Plasma Today R25.1 - Tremor, unspecified Patient Instructions: Do blood work We will call you about results If abnormal will arrange a follow up If normal, follow with your primary care as discussed with annual thyroid function testing Coding Level of Care Code New Pt Level 4 (88262) Diagnoses Goiter E04.9 Tremor R25.1 Time Spent (min) 45
[2024-02-09 08:21] VITALS: BP 96/70; PULSE 47; BMI 24.1
[2024-02-09 08:49] VITALS: PULSE 64
== END 2024-02-09 09:07 | disposition home or self-care (01) ==
PROVIDERS: PCP Internal Medicine; Visit Provider Student in an Organized Health Care Education/Training Program
DX: E04.9 Nontoxic goiter, unspecified (principal); R25.1 Tremor, unspecified
CPT/HCPCS: 99204

== ENCOUNTER → 2024-02-09 08:11 | Outpatient (BNVA) | payer BC, SELFPAY | PROVIDERS: PCP Internal Medicine; Visit Provider Student in an Organized Health Care Education/Training Program ==

== ENCOUNTER 2024-02-14 12:47 | Outpatient (REF) | payer BC, SELFPAY ==
[2024-02-19 05:19] LABS: Metanephrine, Free 52 pg/mL (<=57); Normetanephrines, Free 133 pg/mL (<=148); Total Metanephrine, Free 185 pg/mL (<=205)
== END 2024-02-14 12:48 | disposition home or self-care (01) ==
LOC: HO.LAB 12:47
PROVIDERS: PCP Internal Medicine; Visit Provider Student in an Organized Health Care Education/Training Program
DX: R25.1 Tremor, unspecified (principal)
CPT/HCPCS: 36415; 83835

== ENCOUNTER 2024-03-01 15:01 | Outpatient (REF) | payer BC, SELFPAY ==
--- NOTE | ~2024-03-01 | US_ITS ---
EXAMINATION: US PELVIS CLINICAL INFORMATION: Menorrhagia COMPARISON: None available. TECHNIQUE: Ultrasound of the pelvis is performed using both transabdominal and transvaginal transducers along with Doppler. Transvaginal imaging is performed due to inadequate visualization transabdominally. FINDINGS: Uterus: The heterogeneous uterus is anteverted and measures 7.3 x 3.0 x 4.7 cm. The double wall endometrial thickness is 0.9 mm. There is a subcentimeter cystic region within the heterogeneous endometrium. The uterus is smooth in contour and has normal myometrial echogenicity. No visible fibroid. Adnexa: Both ovaries are visualized. There is normal color flow to the adnexa. There is no ovarian torsion. There is no pelvic ascites or fluid collection. Right ovary measures 3.4 x 2.2 x 2.3 cm. Left ovary measures 4.3 x 2.0 x 3.6 cm. US/US pelvic and transvaginal IMPRESSION: Heterogeneous endometrium with a subcentimeter cystic region. Recommend gynecologic evaluation. Electronically signed by: Leah Godfrey MD 03/01/2024 07:02 PM EDT
== END 2024-03-01 15:02 | disposition home or self-care (01) ==
LOC: HO.US 15:01
PROVIDERS: PCP Internal Medicine; Visit Provider Psychiatry & Neurology Neurology
DX: N92.0 Excessive and frequent menstruation with regular cycle (principal)
CPT/HCPCS: 76830; 76856

== ENCOUNTER 2024-03-29 11:33 | Outpatient (REF) | payer BC, SELFPAY ==
[2024-03-29 14:23] LABS: Free T4 (Free Thyroxine) 0.92 ng/dL (0.71-1.85); Thyroid Stimulating Hormone 1.72 uIU/mL (0.32-4.0)
[2024-03-30 04:05] LABS: HBS Num1 795.36 mIU/mL (0-7.99); ~Hepatitis B Surface Antibody REACTIVE (Nonreactive)
[2024-04-01 13:37] LABS: Thyroid Peroxidase Antibodies 684 IU/mL (<9)
[2024-04-01 23:19] LABS: TS Negative Control Passed; TS Panel A 2; TS Panel B 0; TS Positive Control Passed; TSpotTB Negative (Negative)
== END 2024-03-29 11:34 | disposition home or self-care (01) ==
LOC: HO.LAB 11:33
PROVIDERS: PCP Internal Medicine; Visit Provider Internal Medicine
DX: G90.A Postural orthostatic tachycardia syndrome [POTS] (principal); E01.0 Iodine-deficiency related diffuse (endemic) goiter
CPT/HCPCS: 36415; 84439; 84443; 84481; 86376; 86481; 86706

== ENCOUNTER 2024-10-07 13:11 | Outpatient (AMB) | payer BC, SELFPAY ==
[2024-10-07 13:12] VITALS: BP 123/70; PULSE 64; RESP 14; TEMP 36.6; O2SAT 99; BMI 23.4
--- NOTE | 2024-10-07 13:12 | MHC.PC.OV ---
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: No Accompanied by: Self / Same As Patient Allergies amoxicillin Allergy (Mild, Verified 10/07/24 15:10) Hives Medication List - Last Reconciled 10/07/24 by Cande Sanches PA-C lorazepam 1 mg PO BID 30 days ondansetron HCl 4 mg PO Q8H propranolol 10 mg PO DAILY sumatriptan succinate mg PO Tobacco use date assessed: 10/07/24 Dental Screening Dental Screen Date: 10/07/24 Did you have a dental visit in the last 12 months?: Yes Did you have a dental problem in the last 6 months where you did not have access to dental care?: No Was dental information given to patient?: Patient has dentist HPI follow up HPI Details The patient is a 24-year-old female presenting to establish [facility] primary care and conduct a general physical examination. She has a known history of generalized tremors associated with functional neurological disorder, managed intermittently with lorazepam. Furthermore, she has Postural Orthostatic Tachycardia Syndrome, contributing to persistent nausea mitigated by ondansetron, and she takes propranolol for POTS management. Her condition intermittently causes fainting episodes, the last noted several months prior. The patient also experiences migraines, treated with sumatriptan. Previously identified Vitamin D deficiency is under management with dietary supplementation. Recent cervical screening was completed at a nearby center. There is no family history of breast or colon cancer. Prior blood work in December revealed normal results across several parameters. Social History - Recent nursing school graduate. - Engaged in educational activities, indicating regular intellectual engagement. - Previously revealed Vitamin D deficiency, possibly linked to limited sun exposure, particularly during winter. [facility] Medical History (Updated 10/07/24 @ 15:13 by Cande Sanches PA-C) Vitamin D deficiency Migraines Goiter Tremor POTS (postural orthostatic tachycardia syndrome) Family History Paternal Grandmother Chronic a-fib Father BP (high blood pressure) Prediabetes Mother Shannan's disease Family history of thyroid problem Social History Housing: House Alcohol intake: current Alcohol intake frequency: holidays/special occasions only Patient Tobacco Use Status: Never used Tobacco service: No Current occupational status: unemployed Cognitive needs: No Hearing needs: No Vision needs: Yes (rx glasses) Questionnaire PHQ-9 Over the last 2 weeks, how often have you been bothered by any of the following problems? 1. Little interest or pleasure in doing things: not at all 2. Feeling down, depressed, or hopeless: not at all 3. Trouble falling or staying asleep, or sleeping too much: not at all 4. Feeling tired or having little energy: not at all 5. Poor appetite or overeating: not at all 6. Feeling bad about yourself - or that you are a failure or have let yourself or your family down: not at all 7. Trouble concentrating on things, such as reading the newspaper or watching television: not at all 8. Moving or speaking so slowly that other people could have noticed. Or the opposite - being so fidgety or restless that you have been moving around a lot more than usual: not at all 9. Thoughts that you would be better off or of hurting yourself in some way: not at all Total score: 0 Depression Screening Interpretation: Negative Depression Screening Done: Yes 11426 - PHQ-9 Billing: Yes Source: Developed by Drs. Ant Beckett, Feli Nielsen, Hong Samuel and colleagues, with an educational nerissa from [employer]. Thrive Questionnaire Date Thrive assessed: 10/07/24 I am a: Patient What is your living situation today?: I have a steady place to live Within the past 12 months, did the food you bought not last and you didn't have the money to get more?: Never true Within the past 12 months, did you worry whether your food would run out before you got money to buy more?: Never true Do you have trouble paying for medicines?: No Do you have trouble getting transportation to medical appointments?: No Do you have trouble paying your heating and electricity bill?: No Do you have trouble taking care of your child, family member or friend?: No Do you have trouble with day-to-day activities such as bathing, preparing meals, shopping, managing finances, etc.?: No Are you currently unemployed and looking for a job?: No Are you interested in more education?: No Please select the resources that you would like help with: None THRIVE Score: 0 AUDIT C Alcohol Use Questionnaire (AUDIT-C) 1. How often do you have a drink containing alcohol?: Monthly or less 2. How many drinks containing alcohol do you have on a typical day when you are drinking?: 1 or 2 3. How often do you have six or more drinks on one occasion?: Never Total Score: 1 Score Reviewed/Action Taken: No YVETTE-7 AMB Questionnaire YVETTE-7 Date YVETTE - 7 assessed: 10/07/24 Feeling nervous, anxious, or on edge: 0 = Not at all Not being able to stop or control worryin = Not at all Worrying too much about different things: 0 = Not at all Trouble relaxin = Not at all Being so restless that it is hard to sit still: 0 = Not at all Becoming easily annoyed or irritable: 1 = Several days Feeling afraid as if something awful might happen: 0 = Not at all Total YVETTE-7 score (0-4 normal; 5-9 mild; 10-14 moderate; 15-21 severe): 1 Source: Developed by Drs. Ant Beckett, Feli Nielsen, Hong Samuel and colleagues, with an educational nerissa from [employer]. YVETTE-7 Assessment Billing YVETTE-7 Assessment Tool: YVETTE-7 Assessment 84051 Review of Systems Const Details: - Neurological: Reports generalized tremors; denies current exacerbation. - Cardiovascular: Denies palpitations or chest pain. - Gastrointestinal: Reports persistent nausea. - Psychological: Denies active anxiety or depression. - Musculoskeletal: No joint pain or swelling. Physical exam (Primary Care) Vital Signs: Last Vital Signs Temp 97.9 F 10/07/24 13:12 Pulse 64 10/07/24 13:12 Resp 14 10/07/24 13:12 BP 123/70 10/07/24 13:12 Pulse Ox 99 10/07/24 13:12 Oxygen Delivery Method Room Air 10/07/24 13:12 Care Plan Goal for BP management: <140/90 at Goal BMI result Body Mass Index 23.4 normal bmi Tobacco/Smoking Status: Tobacco use Status Tobacco use date assessed 10/07/24 10/07/24 13:20 Patient Tobacco Use Status Never used Tobacco 10/07/24 13:20 PHQ-9: PHQ-9 Score PHQ-9: Total score 0 10/07/24 13:20 Depression Screening Interpretation: Negative Thrive Assessment: Date of Thrive Assessment Date Thrive assessed 10/07/24 10/07/24 13:20 Const Other: Appearance: Alert. Oriented X3. No acute distress. Head: Normal external exam. Normocephalic. Atraumatic. Eyes: Pupils are equal, round, and reactive to light. Extraocular movements intact. Conjunctiva and sclera normal. Eyelids normal. Ears: External auditory canal normal. Tympanic membranes normal. Throat: Pharynx normal. Uvula midline. Moist mucous membranes. Neck: Normal inspection. Neck supple. Full range of motion. No adenopathy. Thyroid Normal. No meningeal signs. No neck mass noted. Cardiovascular: Normal heart rate and rhythm. Heart sound normal. No murmurs noted. Pulses normal throughout. Respiratory: No respiratory distress. Painless inspiration. Breath sounds normal. No wheezes/rales/rhonchi noted. Chest nontender. No accessory muscle usage noted or decreased air movement noted. Abdomen: Soft and nontender. Bowel sounds normal in all 4 quadrants. No distention noted. No organomegaly noted. No visible injury noted. Back: No costovertebral angle tenderness. Full range of motion noted. Skin: Skin warm and dry. Normal skin color. Normal skin turgor. No rashes/lesions/lacerations noted. Extremities: No lower extremity edema. Extremities exhibit normal range of motion. Extremities nontender. Neuro: Oriented X 3. No motor deficit. No sensory deficit. Reflexes normal. Results Reviewed Results Reviewed: - Labs: Prior complete blood count without anemia; normal white blood cell count and platelets. Kidney function tests, electrolytes, glucose, and liver function tests were within normal limits. Previous cholesterol levels normal; thyroid check reported normal. Coding Level of Care Code Est Pt Level 4 (77348) Complex EM visit Add On G2211 Diagnoses Tremor R25.1 POTS (postural orthostatic tachycardia syndrome) G90.A Migraines G43.909 Vitamin D deficiency E55.9 Additional Codes PHQ-9 - 68362 - PHQ-9 Billing: Yes ([id number]) YVETTE-7 Assessment Billing - YVETTE-7 Assessment Tool: YVETTE-7 Assessment 23469 ([id number]) Assessment & Plan Assessment & Plan (1) Tremor: Code(s): R25.1 - Tremor, unspecified Category: Medical Plan: The patient will continue using lorazepam on an as-needed basis for tremor management. Close follow-up with Dr. Williamson to evaluate frequency and efficacy. Condition is chronic and stable will continue to monitor. (2) POTS (postural orthostatic tachycardia syndrome): Code(s): G90.A - Postural orthostatic tachycardia syndrome [POTS] Category: Medical Plan: Management will continue with propranolol and ondansetron. Emphasize non-pharmacological methods to mitigate fainting spells, like hydration and slow positional changes. Condition is chronic and stable will continue to monitor. (3) Migraines: Code(s): G43.909 - Migraine, unspecified, not intractable, without status migrainosus Category: Medical Plan: Maintain sumatriptan treatment for migraines as needed. Monitor episode frequency and adjust treatment as necessary. Condition is chronic and stable continue to monitor. (4) Vitamin D deficiency: Code(s): E55.9 - Vitamin D deficiency, unspecified Category: Medical Plan: Continue Vitamin D supplementation. Re-assessment planned with upcoming lab work to ensure therapeutic levels. Condition is chronic and stable will continue to monitor. Plan Plan Patient was informed and verbally consented to the use of an ambient scribe for clinic note documentation during this visit. 1. Functional Neurological Disorder Tremors The patient will continue using lorazepam on an as-needed basis for tremor management. Close follow-up with Dr. Williamson to evaluate frequency and efficacy. 2. Postural Orthostatic Tachycardia Syndrome Pots Management will continue with propranolol and ondansetron. Emphasize non-pharmacological methods to mitigate fainting spells, like hydration and slow positional changes. 3. Migraines Maintain sumatriptan treatment for migraines as needed. Monitor episode frequency and adjust treatment as necessary. 4. Vitamin D Deficiency Continue Vitamin D supplementation. Re-assessment planned with upcoming lab work to ensure therapeutic levels. I discussed with the patient the current management strategies for her functional neurological disorder, POTS, migraines, and Vitamin D deficiency. We agreed to continue her current treatments as they are effective. We emphasized the importance of monitoring symptoms, particularly regarding the frequency of tremors and fainting spells associated with POTS. The benefits of her current medication regimen, along with the importance of lifestyle measures like hydration and slow positional changes for POTS, were reviewed. I ensured the patient understands to contact us for new or worsening symptoms or for prescription refills. A one-year follow-up was scheduled, but earlier appointments may be made if necessary. The potential need to monitor Vitamin D levels was discussed, along with the importance of continued supplementation. Orders: Orders Vitamin D 25-OH Total Today Z00.00 - Encounter for general adult medical examination without abnormal findings Vitamin B12 and Folate Today Z00.00 - Encounter for general adult medical examination without abnormal findings Lipid Panel Today Z00.00 - Encounter for general adult medical examination without abnormal findings Liver Panel Today Z00.00 - Encounter for general adult medical examination without abnormal findings Magnesium Today Z00.00 - Encounter for general adult medical examination without abnormal findings Hemoglobin A1c Today Z00.00 - Encounter for general adult medical examination without abnormal findings Complete Blood Count Auto Diff Today Z00.00 - Encounter for general adult medical examination without abnormal findings Comprehensive [place]. Panel Fast Today Z00.00 - Encounter for general adult medical examination without abnormal findings C Reactive Protein Today Z00.00 - Encounter for general adult medical examination without abnormal findings TSH reflex Free T4 Today Z00.00 - Encounter for general adult medical examination without abnormal findings Medications: Changed From lorazepam 1 mg PO BID To lorazepam 1 mg PO BID 60 tabs 0RF 30 days Patient Instructions: - Continue taking lorazepam, ondansetron, propranolol, and sumatriptan as directed. - Take Vitamin D supplements daily; watch for any side effects. - Stay well-hydrated and change positions slowly to help manage POTS symptoms. - Schedule a follow-up appointment in one year or sooner if symptoms change. - Notify us if you experience more frequent or intense tremors, nausea, or migraines.
--- OUTSIDE RECORDS SUMMARY | 2024-10-07 13:13 | XMS_ITS | Clinical Summary ---
Author Organization [facility] Address [address] [id number] Care Team Providers Care Septic Tank Cleaner Name Role Phone Ant Dahl MD Primary Care Provider [phone] Allergies Active Allergy Reactions Criticality Noted Date Comments Amoxicillin Hives,Rash Medium 12/20/2022 Level of certainty: Moderately Certain Medications propranoloL (INDERAL) 20 mg tablet Active SUMAtriptan (IMITREX) 25 mg tablet Active ondansetron (ZOFRAN) 4 mg tablet Active naproxen (NAPROSYN) 250 mg tablet SMARTSI Tablet(s) By Mouth Twice Daily PRN 08/01/2023 Active LORazepam (ATIVAN) 1 mg tablet Active Active Problems Problem Noted Date Diagnosed Date POTS (postural orthostatic tachycardia syndrome) 06/28/2024 Functional neurological symp sybil disorder with abnormal movement 06/28/2024 Family History Medical History Relation Name Comments Hypertension Father Kidney nephrosis Father Emphysema Maternal Grandfather Was a C igarette Smoker Atrial fibrillation Maternal Grandmother Hypertension Maternal Grandmother Shannan's thyroiditis Mother Bipolar disorder Paternal Grandmother Stroke Paternal Grandmother Relation Name Status Comments Father Alive Maternal Grandfather Maternal Grandmother Alive Mother Alive Paternal Grandmother Alive Social History Tobacco Use Types Packs/Day Years Used Date Smoking Tobacco: Never Smokeless Tobacco: Never Tobacco Cessation:Counseling Given: Not Answered Alcohol Use Standard Drinks/Week Comments Yes 0 (1 standard drink = 0.6 oz pur e alcohol) Rarely 1-2 drinks Comments Unknown Sex and Gender Information Value Date Recorded Sex Assigned at Female 06/22/2024 10:32 AM EST Legal Sex Female 4:03 PM EDT Gender Identity Female 06/22/2024 10:32 AM EST Sexual Orientation Straight 06/22/2024 10 :32 AM EST Last Filed Vital Signs Vital Sign Reading Time Taken Comments Blood Pressure 118/86 06/28/2024 8:42 AM EST Pulse 83 06/28/2024 8:42 AM EST Temperature 36.6 ??C (97.8 ??F) 06/28/2024 8:34 AM ES T Respiratory Rate 18 06/28/2024 8:34 AM EST Oxygen Saturation - - Inhaled Oxygen Concentration - - Weight 65.4 kg (144 lb 3.2 oz) 06/28/2024 8:34 A M EST Height - - Body Mass Index - - Plan of Treatment Health Maintenance Due Date Last Done Comments HIV Screening 2002 Hepatitis C Screening 2002 Pap Smear 2002 COVID-19 Vaccine (5 - 2023-2 5 season) 2024 04/20/2022, 07/09/2021, 01/05/2021, Additional history exists Chlamydia Screening 05/02/2024 05/02/2023 Alcohol/Substance Use Screening 05/22/2024 Depression Screening and Follow-Up 05/22/2024 Social Drivers of Health Aliya ual Screening 05/22/2024 DTaP,Tdap,and Td Vaccines (8 - Td or Tdap) 03/19/2034 03/19/2024, 03/04/2014, 02/15/2007, Additional history exists RSV Vaccine (60+ years old a nd patients) (1 - 1-dose 75+ series) 2077 Pneumococcal Vaccine: Pediat staci (0-5 Years) and At-Risk Patients (6-50 Years) Completed 02/15/2007, 01/09/2003, 2002, Additional history exists Varicella Vaccines Completed 02/19/2008, 07/16/2003 HPV Vaccines Completed 09/18/2014, 04/21, 03/04/2014 Meningococcal Vaccine Completed 01/21/2021, 014 Hepatitis B Vaccines Completed 01/31/2024, 12/28/2023, 04/09/2003, Additional history exists Influenza Vaccine Completed 01/31/2024, , 03/31/2022, Additional history [place] [id number] [facility] HMO/POS Care Teams Septic Tank Cleaner Relationship Specialty Start Date End Date Ant Dahl MD PCP - General Cardiology 01/17/24
--- OUTSIDE RECORDS SUMMARY | 2024-10-07 13:13 | XMS_ITS | Clinical Summary ---
Author Organization [facility] Address [address] [place] [address] Care Team Providers Care Assistant Press Operator Offset Name Role Phone Pcp, No Primary Care Provider Unavailabl e Allergies Active Allergy Reactions Criticality Noted Date Comments Amoxicillin Hives,Rash/Dermatitis Medium 12/20/2022 Medications fludrocortisone (FLORINEF) 0.1 MG tablet Take 1 tablet (0.1 mg total) by mouth daily. 3 Active Magnesium Oxide -Mg Supplement 400 MG Cap Take 1 capsule by mouth daily. 3 Active Magnesium 400 MG Cap 1 tab qd 3 Active riboflavin (VITAMIN B-2) 100 MG tablet Take 1 tablet (100 mg total) by mouth 2 (two) times a day. 3 Active ondansetron (ZOFRAN) 4 MG tabletIndicatio ns:Orthostatic intolerance Take 1 tablet (4 mg total) by mouth 2 times daily (every 12 hours) as needed for nausea or vomiting. 20 tablet 3 Active metoPROLOL TARTRATE (LOPRESSOR) 25 MG tablet Take 0.5 tablets (12.5 mg total) by mouth. 3 Active midodrine (ProAmatine) 5 MG tabletIndicatio ns:Orthostatic intolerance,Dys autonomia orthostatic hypotension syndrome Take 1 tablet (5 mg total) by mouth 3 (three) times a day. Onset of effect of midodrine is approx 30-45 minutes; lasting approx 3 1/2 hours. You may take 5 mg tablets every 4 - 5 hours for prolonged periods of upright posture and/or significant environmental heat. LAST DOSE NO LATER THAN 1800 90 tablet 5 3 Active sodium chloride 1 g tabletIndicatio ns:Orthostatic intolerance,Dys autonomia orthostatic hypotension syndrome Take 0.5 tablets (0.5 g total) by mouth 3 (three) times a day with meals. TAKE 500mg TAB WITH EACH LITRE OF H2OL TOTAL 1,5 GRAMS NaCl 45 tablet 5 Active propranolol (INDERAL) 10 MG tabletIndicatio ns:Orthostatic intolerance Take 1 tablet (10 mg total) by mouth 3 (three) times a day. 90 tablet 3 3 Active Social History Tobacco Use Types Packs/Day Years Used Date Smoking Tobacco: Never Smokeless Tobacco: Never Tobacco Cessation:Counseling Given: Not Answered Comments Unknown Sex and Gender Information Value Date Recorded Sex Assigned at Female 12/16/2022 9:55 AM EDT Legal Sex Female 9:53 AM EDT Gender Identity Female 12/16/2022 9:55 AM EDT Sexual Orientation Choose not to disclose 2022 9:55 AM EDT Last Filed Vital Signs Vital Sign Reading Time Taken Comments Blood Pressure 111/77 12/20/2022 8:54 AM EDT Pulse 60 12/20/2022 8:52 AM EDT Temperature - - Respiratory Rate - - Oxygen Saturation 100% 12/20/2022 8:52 AM EDT Inhaled Oxygen Concentration - - Weight 59 kg (130 lb) 12/27/2022 9:35 AM EDT Height 167.6 cm (5' 6 ) 12/27/2022 9:35 AM EDT Body Mass Index 20.98 12/27/2022 9:35 AM EDT Plan of Treatment Health Maintenance Due Date Last Done Comments Hepatitis C Virus Screening 2002 HIV Screening 2015 HPV Vaccines (1 - 3-dose series) 2017 DTaP/Tdap/Td Vaccines (1 - Tdap) 2021 Hepatitis B Vaccines (1 of 3 - 19+ 3-dose series) 2021 Pap Smear (Ages 21-65) 2023 COVID-19 Vaccine (1 - 2023- season) 2024 Influenza Vaccine 12/20/2024 02/08/2023, , 03/31/2020, Additional history exists Pneumococcal Vaccine: Pediatric (0-5 Years) and At-Risk Patients (6 to 49 Years) Aged Out No longer eligible based on patient's age to [place] [id number] [facility] - HMO Care Teams Assistant Press Operator Offset Relationship Specialty Start Date End Date Pcp, No PCP - General General Medicine 12/16/22
--- OUTSIDE RECORDS SUMMARY | 2024-10-07 13:13 | XMS_ITS ---
Author Name [facility] Organization Unknown History of Medication Use Medication Directions Dispensed Refills Start Date End Date Stat us propranolol (INDERAL) 10 MG tablet Take 1 tablet (10 mg total) by mouth 3 (three) times a day. 12/20/2022 02/16/2023 active ondansetron (ZOFRAN) 4 MG tablet Take 1 tablet (4 mg total) by mouth 2 times daily (every 12 hours) as needed for nausea or vomiting. 12/20/2022 active metoPROLOL TARTRATE (LOPRESSOR) 25 MG tablet Take 0.5 tablets (12.5 mg total) by mouth. 12/13/2022 active Magnesium 400 MG Cap 1 tab qd 11/21/2022 active metoPROLOL TARTRATE (LOPRESSOR) 25 MG tablet 11/15/2022 12/20/2022 aborted Problems Problem Status Onset Date Problem Type Date of Resoluti on Source Tremor active EncounterDiagnosisAct CCT Encounters Encounter Type Encounter Reason Primary Diagnosis Location Date Ambulatory Orthostatic hypotension Orthostatic hypotension [facility] 12/27/2022 Ambulatory Orthostatic hypotension [facility] 12/20/2022 Care Team Organization Name Specialty Phone Email Start Date End [facility] NO PCP Primary Care 12/20/2022 12/20/2022 [facility] PCP,No Primary Care 12/20/2022
--- OUTSIDE RECORDS SUMMARY | 2024-10-07 13:14 | XMS_ITS | Referral Summary ---
Author Organization [facility] Address [address] [place] [address] Care Team Providers Care Sales Representative Girls' Apparel Name Role Phone Ant Dahl MD Primary [...] symp sybil disorder with abnormal movement 06/28/2024 Social History Tobacco Use Types Packs/Day Years [...] Mass Index - - Plan of Treatment Not on file Insurance [facility] HMO/POS Care Teams Sales Representative Girls' Apparel Relationship Specialty Start Date End Date Ant Dahl MD PCP - General Cardiology 01/17/24
--- OUTSIDE RECORDS SUMMARY | 2024-10-07 13:14 | XMS_ITS | Encounter Summary ---
Author Organization [facility] Address [address] [place] [address] Care Team Providers Care Junior Qa Analyst Name Role Phone Pcp, No Primary Care Provider Unavailabl e Encounter Details Date Type Department Care Team ([facility] st Contact Info) Description 01/30/2023 Telephone [facility] Heart & V[facility] [place] [facility] - Cardiology [address] [place] [address] Panda Chen PA-C [address] [place] [address] Social History Tobacco Use Types Packs/Day Years Used Date Smoking Tobacco: Never Smokeless Tobacco: Never Comments Unknown Sex and Gender Information Value Date Recorded Sex Assigned at Female 12/16/2022 9:55 AM EDT Legal Sex Female 9:53 AM EDT Gender Identity Female 12/16/2022 9:55 AM EDT Sexual Orientation Choose not to disclose 2022 9:55 AM EDT documented as of this encounter Miscellaneous Notes * Telephone Encounter - Ritchie Spencer - 02/01/2023 8:23 AM EDT Ok thanks! * Telephone Encounter - Panda Chen PA-C - 02/01/2023 8:10 AM EDT Ok no problem. I will write in this AM * Telephone Encounter - Ritchie Spencer - 01/30/2023 1:45 PM EDT Yeni, This patient advised that she needs a note excusing her from her for her 12/20 appointment. Thanks documented in this encounter Plan of Treatment Not on file documented as of this encounter Visit Diagnoses Not on filedocumented in this encounter Care Teams Junior Qa Analyst Relationship Specialty Start Date End Date Pcp, No PCP - General General Medicine 12/16/22 documented as of this encounter
== END 2024-10-07 13:37 | disposition home or self-care (01) ==
LOC: HO.HMCSH 13:11
PROVIDERS: PCP Internal Medicine; Visit Provider Physician Assistant Medical
DX: R25.1 Tremor, unspecified (principal); G90.A Postural orthostatic tachycardia syndrome [POTS]; G43.909 Migraine, unspecified, not intractable, without status migrainosus; E55.9 Vitamin D deficiency, unspecified

== ENCOUNTER → 2024-10-07 13:11 | Outpatient (BNVA) | payer BC, SELFPAY | PROVIDERS: PCP Internal Medicine; Visit Provider Physician Assistant Medical | DX: Z76.89 Persons encountering health services in other specified circumstances (principal); R25.1 Tremor, unspecified; G90.A Postural orthostatic tachycardia syndrome [POTS]; G43.909 Migraine, unspecified, not intractable, without status migrainosus; E55.9 Vitamin D deficiency, unspecified; Z79.899 Other long term (current) drug therapy | CPT/HCPCS: 96127 ==